=== PATIENT | female | born 1960 | race Caucasian/White ===

== ENCOUNTER → 2020-01-26 14:44 | Outpatient (BNVA) | payer OTHER, SELFPAY | PROVIDERS: PCP Internal Medicine; Referring Provider Internal Medicine; Visit Provider Nurse Practitioner | DX: Z76.89 Persons encountering health services in other specified circumstances (principal) ==

== ENCOUNTER 2020-05-26 08:36 | Outpatient (REF) | payer OTHER, SELFPAY ==
[2020-05-26 09:12] LABS: MANUAL DIFF FLAG NO
[2020-05-26 09:16] LABS: Basophils Percent Auto 0.6 % (0-2); Eosinophils Absolute Auto 0.2 X10*3/uL (0.0-0.4); Eosinophils Percent Auto 4.2 % (0-4); Hemoglobin 12.1 g/dl (12.0-16.0); Imm Gran Abs Auto 0.02 X10*3/uL (0.00-0.03); Imm Gran Pct Auto 0.4 % (0.0-0.4); Lymphocytes Absolute Auto 1.8 X10*3/uL (1.2-4.9); Lymphocytes Percent Auto 33.7 % (20-40); Mean Corpuscular Hemoglobin 28.3 pg (27.0-33.0); Mean Corpuscular Volume 91.1 fL (80-98); Mean Platelet Volume 12.4 fL (9.4-12.3); Monocytes Absolute Auto 0.4 X10*3/uL (0.1-1.2); Monocytes Percent Auto 7.8 % (2-11); Neutrophils Absolute Auto 2.8 X10*3/uL (2.0-8.3); Neutrophils Percent Auto 53.3 % (45-73); Platelet Count 277 X10*3/uL (160-400); Red Blood Count 4.28 X10*6/uL (4.20-5.50); Red Cell Distribution Width 13.6 % (11.0-16.0); White Blood Count 5.3 X10*3/uL (4.8-10.8)
[2020-05-26 09:43] LABS: Alanine Aminotransferase 12 U/L (0-31); Albumin Level 3.9 g/dL (3.5-5.0); Alkaline Phosphatase 97 U/L (39-117); Anion Gap 12 (12-20); Aspartate Amino Transferase 11 U/L (5-31); Bilirubin Total 0.4 mg/dL (0.0-1.0); Blood Urea Nitrogen 15 mg/dL (9-16); Calcium 9.2 mg/dL (8.4-10.2); Carbon Dioxide 29 mmol/L (22-29); Chloride 105 mmol/L (96-108); Cholesterol 195 mg/dL; Estimated Glomerular Filt Rate > 60; Glucose Fasting 98 mg/dL (60-99); HDL Cholesterol 53 mg/dL; LDL Cholesterol Calculated 124 mg/dl; Potassium 4.5 mmol/L (3.3-5.1); Sodium 141 mmol/L (135-145); Triglycerides 91 mg/dL
[2020-05-26 10:05] LABS: TSH reflex Free T4 2.76 uIU/mL (0.32-4.0); Vitamin D 25-OH Total 21.2 ng/mL (>30)
== END 2020-05-26 08:37 | disposition home or self-care (01) ==
LOC: HO.LAB 08:36
PROVIDERS: PCP Internal Medicine; Visit Provider Internal Medicine
DX: Z00.01 Encounter for general adult medical examination with abnormal findings (principal); I10 Essential (primary) hypertension; D12.6 Benign neoplasm of colon, unspecified; L30.9 Dermatitis, unspecified; K21.9 Gastro-esophageal reflux disease without esophagitis; E66.01 Morbid (severe) obesity due to excess calories
CPT/HCPCS: 36415; 80053; 80061; 82306; 84443; 85025

== ENCOUNTER → 2020-07-06 10:12 | Outpatient (BNVA) | payer OTHER, SELFPAY | PROVIDERS: Visit Provider Physician Assistant ==

== ENCOUNTER → 2020-11-03 08:33 | Day surgery (SDC) | payer OTHER, SELFPAY ==
--- NOTE | 2020-11-02 10:21 | P.CONAN_ITS ---
HPI - Anesthesia Eval Consult details Narrative: 60yo F for Colonoscopy Cx'd 11/03/20 d/t poor prep PMFSH Active Problems Active Problems: All Active Problems (Updated 07/06/20 @ 12:39 by Janet padilla PA-C) Arthralgia of knee, left (Acute) Tubular adenoma of colon (Acute) Dermatitis (Acute) Morbid obesity (Acute) Essential hypertension (Acute) Early satiety (Acute) Constipation (Acute) GERD (gastroesophageal reflux disease) (Acute) Past Medical History Medical History Arthralgia of knee, left Dermatitis Essential hypertension Morbid obesity Tubular adenoma of colon Family History Family History Father History of heart attack Mother Hx gestational diabetes Hx of heat stroke History of heart attack Surgical History Surgical History History of colonoscopy History of surgery on wrist Social History Social History Household Members: Family Alcohol intake: current Alcohol intake frequency: holidays/special occasions only Patient Tobacco Use Status: Current everyday Tobacco user Cigarette Packs Per Day: 10 Current occupational status: employed Meds Allergies Allergy/AdvReac Type Severity Reaction Status Date / Time No Known Allergies Allergy Verified 11/03/20 09:09 [No Known Allergies*] Home Medications Medication Instructions Recorded Confirmed Last Taken Type cetirizine 10 mg tablet 10 mg PO DAILY 05/04/20 Unknown History dupilumab 300 mg/2 mL subcutaneous mg SUBCUT 05/04/20 Unknown History syringe Exam Exam Date and Time: November 02, 2020 1021 Pertinent Lab Results Pertinent Lab Results: Laboratory Tests 05/26/20 05/26/20 08:50 08:50 WBC 5.3 Hgb 12.1 Hct 39.0 Plt Count 277 Sodium 141 Potassium 4.5 Chloride 105 Carbon Dioxide 29 BUN 15 Creatinine 0.76 Assessment and Plan Assessment Anesthesia Assessment: Chart Reviewed
[2020-11-03 09:18] VITALS: BMI 43.6
[2020-11-03 09:27] VITALS: BP 186/76; PULSE 66; RESP 20; TEMP 36.3; O2SAT 96
--- NOTE | 2020-11-03 09:35 | PC.NURSE ---
pt to sss. states only took half the prep. assessment complete. changed went to the br. formed stool noted. Dr Hickey informed, she spoke with pt. Procedure cancelled. pt to call office to reschedule.
== END ==
PROVIDERS: PCP Internal Medicine; Visit Provider Internal Medicine Gastroenterology
DX: Z12.11 Encounter for screening for malignant neoplasm of colon (principal); Z53.8 Procedure and treatment not carried out for other reasons

== ENCOUNTER 2020-11-09 15:47 | Outpatient (REF) | payer OTHER, SELFPAY ==
--- NOTE | ~2020-11-09 | MM_ITS ---
EXAMINATION: MM SCREENING DIGITAL BREAST TOMOSYNTHESIS, BILATERAL CLINICAL INFORMATION: Screening. Asymptomatic. The lifetime risk of breast cancer based on the Tyrer-Cuzick Model is 11%. COMPARISON: Mammography: 08/21/2019, 08/15/2018, 08/09/2017 TECHNIQUE: Digital breast tomosynthesis is performed in both the craniocaudal and mediolateral oblique views along with computer-aided detection (CAD). Synthesized 2D images are generated from the tomosynthesis. Additional views are provided: Bilateral CC. FINDINGS: The breasts are almost entirely fatty (ACR BI-RADS breast composition Category a). There are no significant masses, abnormal calcifications, or other abnormalities. The axilla and skin contours are unremarkable. MM/MM tomosynthesis screening BI IMPRESSION: No mammographic evidence of malignancy. ASSESSMENT: BI-RADS 1: Negative RECOMMENDATION: Routine annual mammography screening. This patient's information was entered into a reminder system with a target due date for their next mammogram.
== END 2020-11-09 15:48 | disposition home or self-care (01) ==
LOC: HO.MAMMO 15:47
PROVIDERS: PCP Internal Medicine; Visit Provider Internal Medicine
DX: Z12.31 Encounter for screening mammogram for malignant neoplasm of breast (principal)
CPT/HCPCS: 77063; 77067

== ENCOUNTER 2021-06-02 10:20 | Outpatient (REF) | payer OTHER, SELFPAY ==
[2021-06-02 13:15] LABS: Alanine Aminotransferase 14 U/L (0-31); Anion Gap 15 (12-20); Aspartate Amino Transferase 14 U/L (5-31); Blood Urea Nitrogen 15 mg/dL (9-16); Calcium 9.6 mg/dL (8.4-10.2); Carbon Dioxide 27 mmol/L (22-29); Chloride 104 mmol/L (96-108); Cholesterol 218 mg/dL; Estimated Glomerular Filt Rate > 60; Glucose Fasting 92 mg/dL (60-99); HDL Cholesterol 50 mg/dL; LDL Cholesterol Calculated 149 mg/dl; Potassium 4.7 mmol/L (3.3-5.1); Sodium 141 mmol/L (135-145); Triglycerides 95 mg/dL
[2021-06-02 13:36] LABS: Vitamin D 25-OH Total 30.4 ng/mL (>30)
== END 2021-06-02 10:21 | disposition home or self-care (01) ==
LOC: HO.LAB 10:20
PROVIDERS: PCP Internal Medicine; Visit Provider Internal Medicine
DX: E55.9 Vitamin D deficiency, unspecified (principal); I10 Essential (primary) hypertension
CPT/HCPCS: 36415; 80048; 80061; 82306; 84450; 84460

== ENCOUNTER 2021-11-24 08:39 | Outpatient (REF) | payer OTHER, SELFPAY ==
--- NOTE | ~2021-11-24 | MM_ITS ---
EXAMINATION: MM SCREENING DIGITAL BREAST TOMOSYNTHESIS, BILATERAL CLINICAL INFORMATION: Screening. Asymptomatic. The lifetime risk of breast cancer based on the Tyrer-Cuzick Model is 13%. COMPARISON: Mammography: 11/09/2020, 08/21/2019, 08/15/2018 TECHNIQUE: Digital breast tomosynthesis is performed in both the craniocaudal and mediolateral oblique views along with computer-aided detection (CAD). Synthesized 2D images are generated from the tomosynthesis. Additional exaggerated right CC and additional left CC views are provided. FINDINGS: The breasts are almost entirely fatty (ACR BI-RADS breast composition Category a). There are no significant masses, abnormal calcifications, or other abnormalities. Background stromal markings are normal and there is no developing density or architectural abnormality. No significant changes. MM/MM tomosynthesis screening BI IMPRESSION: No mammographic evidence of malignancy. ASSESSMENT: BI-RADS 1: Negative RECOMMENDATION: Routine annual mammography screening. This patient's information was entered into a reminder system with a target due date for their next mammogram.
== END 2021-11-24 08:40 | disposition home or self-care (01) ==
LOC: HO.MAMMO 08:39
PROVIDERS: Visit Provider Internal Medicine
DX: Z12.31 Encounter for screening mammogram for malignant neoplasm of breast (principal)
CPT/HCPCS: 77063; 77067

== ENCOUNTER 2022-03-25 11:47 | Outpatient (REF) | payer OTHER, SELFPAY ==
[2022-03-25 12:36] LABS: Influenza A PCR NEGATIVE (Negative); Influenza B PCR NEGATIVE (Negative); Resp Syncy Virus RNA Qual PCR NEGATIVE (Negative); SARS COV2 PCR INHOUSE POSITIVE (Negative)
== END 2022-03-25 11:48 | disposition home or self-care (01) ==
LOC: HO.LNP 11:47
PROVIDERS: Visit Provider Internal Medicine
DX: Z20.822 Contact with and (suspected) exposure to COVID-19 (principal); R43.9 Unspecified disturbances of smell and taste
CPT/HCPCS: 0241U

== ENCOUNTER → 2022-07-31 14:47 | Outpatient (BNVA) | payer OTHER, SELFPAY | PROVIDERS: PCP Internal Medicine; Visit Provider Physician Assistant ==

== ENCOUNTER 2022-11-09 09:30 | Outpatient (REF) | payer OTHER, SELFPAY ==
[2022-11-09 10:43] LABS: Alanine Aminotransferase 13 U/L (0-31); Anion Gap 12 (12-20); Aspartate Amino Transferase 14 U/L (5-31); Blood Urea Nitrogen 15 mg/dL (9-16); Calcium 9.8 mg/dL (8.4-10.2); Carbon Dioxide 26 mmol/L (22-29); Chloride 107 mmol/L (96-108); Cholesterol 221 mg/dL (<200); Estimated Glomerular Filt Rate > 60; Glucose Fasting 99 mg/dL (60-99); HDL Cholesterol 56 mg/dL (>40); LDL Cholesterol Calculated 141 mg/dL (<100); Potassium 4.1 mmol/L (3.3-5.1); Sodium 141 mmol/L (135-145); Triglycerides 122 mg/dL (<150)
[2022-11-09 10:58] LABS: Vitamin D 25-OH Total 29.1 ng/mL (>30)
== END 2022-11-09 09:31 | disposition home or self-care (01) ==
LOC: HO.LAB 09:30
PROVIDERS: PCP Internal Medicine; Visit Provider Internal Medicine
DX: Z00.01 Encounter for general adult medical examination with abnormal findings (principal); E66.01 Morbid (severe) obesity due to excess calories; I10 Essential (primary) hypertension; K21.9 Gastro-esophageal reflux disease without esophagitis; E55.9 Vitamin D deficiency, unspecified
CPT/HCPCS: 36415; 80048; 80061; 82306; 84450; 84460

== ENCOUNTER 2022-11-30 09:25 | Outpatient (REF) | payer OTHER, SELFPAY | END 2022-11-30 09:26 | disposition home or self-care (01) | LOC: HO.MAMMO 09:25 | PROVIDERS: PCP Internal Medicine; Visit Provider Internal Medicine | DX: Z12.31 Encounter for screening mammogram for malignant neoplasm of breast (principal) | CPT/HCPCS: 77063; 77067 ==

== ENCOUNTER → 2022-11-30 10:00 | Outpatient (BNV) | payer OTHER, SELFPAY | PROVIDERS: PCP Internal Medicine; Visit Provider Radiology Diagnostic Radiology | DX: Z12.31 Encounter for screening mammogram for malignant neoplasm of breast (principal) | CPT/HCPCS: 77063; 77067 ==

== ENCOUNTER 2022-12-09 11:17 | Outpatient (AMB) | payer OTHER, SELFPAY ==
[2022-12-09 11:29] VITALS: BP 130/78; PULSE 52; O2SAT 99; BMI 46.6
--- NOTE | 2022-12-09 11:29 | A.OFFPC_ITS ---
Vital Signs 12/09/22 11:29 Height 5 ft 8 in Weight 306 lb 4 oz BMI 46.6 BP 130/78 Blood Pressure Location Lt brachial Position Sitting Pulse 52 Pulse Source Pulse Oximeter Pulse Oximetry (%) 99 Oxygen Delivery Method Room Air Intake Visit Reasons: 6 month follow up Gerd Intake Note: pt is here for a 6 month follow up pt had labs 11/09/22 pt wants flu vaccine today Allergies No Known Allergies [No Known Allergies*] Allergy (Verified 08/04/23 09:15) Medication List - Last Reconciled 12/10/22 by Aditi Schaffer MD amlodipine 5 mg PO QPM bisacodyl (Dulcolax (bisacodyl)) 20 mg PO ONCE cetirizine 10 mg PO DAILY PRN cholecalciferol (vitamin D3) 1,250 mcg PO QWEEK 3 months docusate sodium 100 mg PO BID dupilumab mg subcut losartan-hydrochlorothiazide 100-12.5 mg 1 tab PO DAILY metoprolol succinate ER 25 mg PO DAILY omeprazole 40 mg PO DAILY polyethylene glycol 3350 (Miralax) 238 grams PO ONCE 1 day Tobacco use date assessed: 12/09/22 Dental Screening Dental Screen Date: 12/09/22 Did you have a dental visit in the last 12 months?: Yes Did you have a dental problem in the last 6 months where you did not have access to dental care?: No Was dental information given to patient?: Patient has dentist HPI 6 month follow up Gerd HPI Details 63-year-old lady with hypertension, 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 She has been feeling well, compliant with taking medications with no complaints at present time [facility] Medical History (Updated 08/04/23 @ 09:19 by Aditi Schaffer MD) Vitamin D deficiency Hyperlipidemia Annual visit for general adult medical examination with abnormal findings Maxillary sinusitis, acute Disturbance, sleep Excessive daytime sleepiness Smoker unmotivated to quit Arthralgia of knee, left Dermatitis Morbid obesity Essential hypertension Surgical History History of surgery on wrist History of colonoscopy Family History Father History of heart attack Mother Hx gestational diabetes Hx of heat stroke History of heart attack Hypertension Sister Cancer Social History Household Members: Family Housing: Apartment Alcohol intake: current Alcohol intake frequency: holidays/special occasions only Patient Tobacco Use Status: Current everyday Tobacco user Tobacco use type: Cigarette Cigarettes Per Day: 10 e-Cigarette/Vaping Use: Former Use service: No Current occupational status: employed Cognitive needs: No Hearing needs: No Vision needs: Yes Questionnaire PHQ-9 Over the last 2 weeks, how often have you been bothered by any of the following problems? Depression Screening Interpretation: Negative Depression Screening Done: Yes Source: Developed by Drs. Piotr Shaw, Dionne Storm, Edmund Hickey and colleagues, with an educational blu from [email or web address]. Thrive Questionnaire Date Thrive assessed: 06/06/22 GIULIA-7 AMB Questionnaire GIULIA-7 Date GIULIA - 7 assessed: 06/06/22 Source: Developed by Drs. Piotr Shaw, Dionne Storm, Edmund Hickey and colleagues, with an educational blu from [email or web address]. Review of Systems Const Denies headache(s), Denies lethargy, Denies malaise, Denies weakness and Reports weight gain Eyes Reports no additional complaints ENT Denies dysphagia, Denies dizziness, Denies dry mouth, Denies headache(s), Denies nasal congestion, Denies odynophagia, Denies post nasal drip and Denies sore throat Card Denies chest pain, Denies irregular heart rhythm, Denies lightheadedness, Denies palpitations and Denies dyspnea Resp Denies cough, Denies pain on inspiration, Denies dyspnea and Denies wheezing GI Denies abdominal pain, Denies melena, Denies hematochezia, Denies change in bowel habits, Denies dysphagia, Denies heartburn (Controlled on omeprazole), Denies nausea and Denies odynophagia Reports no additional complaints Musc Denies abnormal gait, Denies back pain, Denies myalgias, Reports arthralgias, Denies muscle cramps, Reports stiffness and Denies tingling Skin/Breast Denies lesions and Denies rash Neuro Denies abnormal gait, Denies dizziness, Denies headache(s), Denies focal weakness, Denies tingling and Denies weakness Psych Reports no additional complaints Endo Denies cold intolerance, Denies polyphagia, Denies polydipsia, Denies polyuria and Denies palpitations Zac/Lymph Denies easy bleeding and Denies easy bruising Aller/Immun Denies seasonal rhinorrhea and Denies wheezing Physical exam (Primary Care) Vital Signs: Last Vital Signs Pulse 52 12/09/22 11:29 BP 130/78 12/09/22 11:29 Pulse Ox 99 12/09/22 11:29 Oxygen Delivery Method Room Air 12/09/22 11:29 BMI result Body Mass Index 46.6 BMI Assessment/Plan discussion: High BMI High, discussed plan: lifestyle, weight reduction, dietary and physical activity Tobacco/Smoking Status: Tobacco use Status Tobacco use date assessed 12/09/22 12/09/22 11:35 Patient Tobacco Use Status Current everyday Tobacco 12/09/22 11:31 e-Cigarette/Vaping Use Former Use 12/09/22 11:31 Depression Screening Interpretation: Negative Thrive Assessment: Date of Thrive Assessment Date Thrive assessed 06/06/22 12/09/22 11:31 Const General: comfortable and no acute distress Nutritional Appearance: obese Orientation/consciousness: patient oriented x3 Limitations: no limitations HENMT Head: Yes normocephalic and Yes atraumatic Ears: hearing grossly normal bilaterally General nose exam: Normal external nose present and No nasal discharge present Face and sinus: Yes face symmetric Mouth: tongue normal and moist mucous membranes Eyes General: appearance normal, both eyes and all related structures Neck Neck: Yes full ROM, Yes no lymphadenopathy and Yes supple Thyroid: Thyroid normal Chest Chest palpation & inspection: normal inspection of the chest Breast/axilla palpation: normal palpation of the breasts Resp Effort & Inspection: normal respiratory effort and able to speak in complete sentences Auscultation: clear to auscultation bilaterally Cardio Rate: regular rate Rhythm: regular rhythm Heart sounds: S1 normal heart sound present and S2 normal heart sound present GI Inspection: Yes obesity Palpation (GI): Soft to palpation, nontender, no guarding and no masses General: Yes no CVA tenderness Back/Spine/Pelvis Back: no CVA tenderness and No back tenderness Skin General skin exam: no rashes or lesions noted Neuro General: patient oriented x3, gait normal, tone normal, moves all extremities, Normal light touch and pain sensation, no focal motor deficits and CN's II-XI intact bilaterally Extrem General: Yes full ROM, Yes no joint enlargement, Yes no clubbing, cyanosis or edema, Yes no pedal edema, Yes no calf tenderness and Yes normal gait Psych Appearance: grossly normal and well kempt Mental Status: mental status grossly normal Speech and movement: Normal speech and movement present Affect: normal affect Office Procedures Flu Questionnaire Does the patient have a severe egg allergy?: No Does the patient have severe life threatening allergies?: No Does the patient have a fever or illness today?: No Has the patient ever had Guillain-[place] Syndrome?: No Has the patient ever had any past reaction to a flu shot?: No Immunizations flu vacc [id number] 6mos up(PF) 60 mcg(15 mcgx4)/0.5 mL IM syringe Performing Provider: Aditi Schaffer MD Performing Location: [facility] Administered by: Anneliese Jarvis CMA on 12/09/22 12:35 Dose Route Admin Location Dispensed Lot Number Expiration Date NDC Mathematician 0.5 mL IM Right Deltoid 0.5 mL [id number] 08/24/23 24550-555-75 [employer] VIS Given Date VIS Provided VIS Publication Date 12/09/22 Single Vaccine 20 Eligibility Eligibility Date Funding Source Not [facility] Eligible 12/09/22 Private Assessment and Plan Assessment & Plan (1) Essential hypertension: Code(s): I10 - Essential (primary) hypertension Plan: Blood pressure at goal of less than 130/80. Continue amlodipine 5 mg daily at night, and losartan-HCTZ 100-12.5 mg 1 tablet in the morning, as well as metoprolol succinate ER 25 mg daily. Reinforced importance of following a low sodium diet, getting regular exercise, and lowering stress levels. Basic metabolic panel (2) Hyperlipidemia: Code(s): E78.5 - Hyperlipidemia, unspecified Qualifiers: Hyperlipidemia type: unspecified Qualified Code(s): E78.5 - Hyperlipidemia, unspecified Plan: Fasting lipid panel ordered today (3) Smoker unmotivated to quit: Code(s): F17.200 - Nicotine dependence, unspecified, uncomplicated Plan: Patient strongly advised to stop smoking, as smoking damages blood vessels, degenerative of joints and spine, damage to lungs and heart., predisposes to developing certain cancers like lung, breast, bladder, colon. Recommended to try decreasing cigarette use by 1-2 cigarettes a day. Advised to monitor what triggers are for smoking so that this can be discussed on the next office visit. We can discuss different options to quit smoking when ready. (4) Vitamin D deficiency: Code(s): E55.9 - Vitamin D deficiency, unspecified Plan: Prescription sent for vitamin-D 350 1000 units per capsule to take once a week for the next 3 months, once finished taking prescription, to continue taking [id number] vitamin-D 3 at 2000 units daily (5) Needs flu shot: Code(s): Z23 - Encounter for immunization Plan: Flu vaccine given today Orders: Orders Influenza [id number] Immunization 12/09/22 Z23 - Encounter for immunization Lipid Panel 05/26/23 Z00.01 - Encounter for general adult medical examination with abnormal findings, F17.200 - Nicotine dependence, unspecified, uncomplicated, E66.01 - Morbid (severe) obesity due to excess calories, I10 - Essential (primary) hypertension, E78.5 - Hyperlipidemia, unspecified Basic Metabolic Panel Fasting 05/26/23 Z00.01 - Encounter for general adult medical examination with abnormal findings, F17.200 - Nicotine dependence, unspecified, uncomplicated, E66.01 - Morbid (severe) obesity due to excess calories, I10 - Essential (primary) hypertension, E78.5 - Hyperlipidemia, unspecified Alanine Aminotransferase 05/26/23 Z00.01 - Encounter for general adult medical examination with abnormal findings, F17.200 - Nicotine dependence, unspecified, uncomplicated, E66.01 - Morbid (severe) obesity due to excess calories, I10 - Essential (primary) hypertension, E78.5 - Hyperlipidemia, unspecified Aspartate Amino Transferase 05/26/23 Z00.01 - Encounter for general adult medical examination with abnormal findings, F17.200 - Nicotine dependence, unspecified, uncomplicated, E66.01 - Morbid (severe) obesity due to excess calories, I10 - Essential (primary) hypertension, E78.5 - Hyperlipidemia, unspecified Vitamin D 25-OH Total 05/26/23 Z00.01 - Encounter for general adult medical examination with abnormal findings, F17.200 - Nicotine dependence, unspecified, uncomplicated, E66.01 - Morbid (severe) obesity due to excess calories, I10 - Essential (primary) hypertension, E78.5 - Hyperlipidemia, unspecified Medications: New cholecalciferol (vitamin D3) 1,250 mcg PO QWEEK 13 caps 0RF 3 months Coding Level of Care Code Est Pt Level 4 (95098) Complex EM visit Add On G2211 Diagnoses Essential hypertension I10 Hyperlipidemia, unspecified hyperlipidemia type E78.5 Hyperlipidemia type: unspecified Smoker unmotivated to quit F17.200 Vitamin D deficiency E55.9 Needs flu shot Z23
== END 2022-12-09 15:48 | disposition home or self-care (01) ==
PROVIDERS: PCP Internal Medicine; Visit Provider Internal Medicine
DX: I10 Essential (primary) hypertension (principal); E78.5 Hyperlipidemia, unspecified; F17.200 Nicotine dependence, unspecified, uncomplicated; E55.9 Vitamin D deficiency, unspecified; Z23 Encounter for immunization
CPT/HCPCS: 90471; 90686; 99499

== ENCOUNTER 2023-08-04 08:47 | Outpatient (AMB) | payer OTHER, SELFPAY ==
[2023-08-04 09:02] VITALS: BP 156/70; PULSE 57; O2SAT 96; BMI 46.1
--- NOTE | 2023-08-04 09:02 | MHC.PC.OV ---
Vital Signs 08/04/23 09:02 08/04/23 09:50 Height 5 ft 8 in Weight 303 lb BMI 46.1 BP 156/70 H 140/75 H Blood Pressure Location Rt brachial Rt brachial Position Sitting Sitting Pulse 57 Pulse Source Pulse Oximeter Pulse Oximetry (%) 96 Oxygen Delivery Method Room Air Intake Visit Reasons: PE and feels tired when she wakes up Intake Note: Pt is here today for f/u HTN and vertigo Allergies No Known Allergies [No Known Allergies*] Allergy (Verified 10/17/23 13:49) Medication List - Last Reconciled 08/04/23 by Aditi Schaffer MD amlodipine 5 mg PO QPM cetirizine 10 mg PO DAILY PRN clobetasol 0.05% topical docusate sodium 100 mg PO BID dupilumab mg subcut losartan-hydrochlorothiazide 100-12.5 mg 1 tab PO DAILY metoprolol succinate ER 25 mg PO DAILY omeprazole 40 mg PO DAILY Tobacco use date assessed: 08/04/23 Dental Screening Dental Screen Date: 08/04/23 Did you have a dental visit in the last 12 months?: Yes Did you have a dental problem in the last 6 months where you did not have access to dental care?: No Was dental information given to patient?: Patient has dentist HPI PE and feels tired when she wakes up HPI Details 63-year-old lady here today for physical exam. Has hypertension, currently on amlodipine losartan HCTZ and metoprolol, previously controlled blood pressure but today's blood pressure is mildly elevated. Denies headaches, no lightheadedness but feels tired when she wakes up in the morning. No headache no shortness a breath no chest pain, no lightheadedness. She has been referred to sleep clinic in 2021, was seen but was unable to do the sleep study done due to scheduling issues. Up-to-date with her screening mammogram due again in 12/14/2023, last Pap smear was done in 2015, overdue. Had a colonoscopy in 2015 with removal of a tubular adenoma and hyperplastic polyp. It was repeated in 2020 but was unable to be completed due to poor prep. Has an appointment with Caitlin Roche later this month, and will discuss having a repeat colonoscopy done. Has chronic GERD, currently stable controlled on omeprazole PFSH Medical History (Updated 10/17/23 @ 14:23 by Eulalia Anderson PA-C) Arthritis of both knees Vitamin D deficiency Hyperlipidemia Annual visit for general adult medical examination with abnormal findings Maxillary sinusitis, acute Disturbance, sleep Excessive daytime sleepiness Smoker unmotivated to quit Arthralgia of knee, left Dermatitis Morbid obesity Essential hypertension Surgical History History of surgery on wrist History of colonoscopy Family History Father History of heart attack Mother Hx gestational diabetes Hx of heat stroke History of heart attack Hypertension Sister Cancer Social History Household Members: Family Housing: Apartment Alcohol intake: current Alcohol intake frequency: holidays/special occasions only Patient Tobacco Use Status: Current everyday Tobacco user Tobacco use type: Cigarette Cigarettes Per Day: 10 e-Cigarette/Vaping Use: Former Use service: No Current occupational status: employed Cognitive needs: No Hearing needs: No Vision needs: Yes Questionnaire PHQ-9 Over the last 2 weeks, how often have you been bothered by any of the following problems? 1. Little interest or pleasure in doing things: not at all 2. Feeling down, depressed, or hopeless: not at all 3. Trouble falling or staying asleep, or sleeping too much: not at all 4. Feeling tired or having little energy: not at all 5. Poor appetite or overeating: not at all 6. Feeling bad about yourself - or that you are a failure or have let yourself or your family down: not at all 7. Trouble concentrating on things, such as reading the newspaper or watching television: not at all 8. Moving or speaking so slowly that other people could have noticed. Or the opposite - being so fidgety or restless that you have been moving around a lot more than usual: not at all 9. Thoughts that you would be better off or of hurting yourself in some way: not at all Total score: 0 Depression Screening Interpretation: Negative Depression Screening Done: Yes 02933 - PHQ-9 Billing: Yes Source: Developed by Drs. Piotr Shaw, DionneEdmund Leung and colleagues, with an educational blu from [employer]. Thrive Questionnaire Date Thrive assessed: 08/04/23 I am a: Patient What is your living situation today?: I have a steady place to live Within the past 12 months, did the food you bought not last and you didn't have the money to get more?: Never true Within the past 12 months, did you worry whether your food would run out before you got money to buy more?: Never true Do you have trouble paying for medicines?: No Do you have trouble getting transportation to medical appointments?: No Do you have trouble paying your heating and electricity bill?: No Do you have trouble taking care of your child, family member or friend?: No Do you have trouble with day-to-day activities such as bathing, preparing meals, shopping, managing finances, etc.?: No Are you currently unemployed and looking for a job?: No Are you interested in more education?: No THRIVE Score: 0 AUDIT C Alcohol Use Questionnaire (AUDIT-C) 1. How often do you have a drink containing alcohol?: Monthly or less 2. How many drinks containing alcohol do you have on a typical day when you are drinking?: 1 or 2 3. How often do you have six or more drinks on one occasion?: Never Total Score: 1 GIULIA-7 AMB Questionnaire GIULIA-7 Date GIULIA - 7 assessed: 08/04/23 Feeling nervous, anxious, or on edge: 0 = Not at all Not being able to stop or control worryin = Not at all Worrying too much about different things: 0 = Not at all Trouble relaxin = Not at all Being so restless that it is hard to sit still: 0 = Not at all Becoming easily annoyed or irritable: 0 = Not at all Feeling afraid as if something awful might happen: 0 = Not at all Total GIULIA-7 score (0-4 normal; 5-9 mild; 10-14 moderate; 15-21 severe): 0 Source: Developed by Drs. Piotr Shaw, Edmund Vieira and colleagues, with an educational blu from [employer]. GIULIA-7 Assessment Billing GIULIA-7 Assessment Tool: GIULIA-7 Assessment 99229 Review of Systems Const Reports as per HPI, Denies headache(s) and Denies weakness Eyes Details: Sees Dr. Messer, wears reading glasses Reports no additional complaints ENT Denies dysphagia, Denies dry mouth, Denies headache(s), Denies nasal congestion and Denies post nasal drip Card Denies chest pain, Denies irregular heart rhythm, Denies lightheadedness, Denies palpitations and Denies dyspnea Resp Denies cough, Denies pain on inspiration, Denies dyspnea and Denies wheezing GI Denies abdominal pain, Denies melena, Denies hematochezia, Denies change in bowel habits, Denies dysphagia, Denies heartburn (Controlled on omeprazole) and Denies nausea Reports no additional complaints Musc Denies abnormal gait, Denies back pain, Denies myalgias, Reports arthralgias, Denies muscle cramps, Reports stiffness and Denies tingling Skin/Breast Denies lesions and Denies rash Neuro Denies abnormal gait, Denies headache(s), Denies focal weakness, Denies tingling and Denies weakness Psych Reports no additional complaints Endo Denies cold intolerance, Denies polyphagia, Denies polydipsia, Denies polyuria and Denies palpitations Zac/Lymph Denies easy bleeding and Denies easy bruising Aller/Immun Denies seasonal rhinorrhea and Denies wheezing Physical exam (Primary Care) Vital Signs: Last Vital Signs Pulse 57 08/04/23 09:02 BP 140/75 H 08/04/23 09:50 Pulse Ox 96 08/04/23 09:02 Oxygen Delivery Method Room Air 08/04/23 09:02 BMI result Body Mass Index 46.1 BMI Assessment/Plan discussion: High BMI High, discussed plan: lifestyle, weight reduction, dietary and physical activity Tobacco/Smoking Status: Tobacco use Status Tobacco use date assessed 08/04/23 08/04/23 09:05 Patient Tobacco Use Status Current everyday Tobacco 08/04/23 09:05 Tobacco use type Cigarette 08/04/23 09:05 e-Cigarette/Vaping Use Former Use 08/04/23 09:05 PHQ-9: PHQ-9 Score PHQ-9: Total score 0 08/04/23 09:53 Depression Screening Interpretation: Negative Thrive Assessment: Date of Thrive Assessment Date Thrive assessed 08/04/23 08/04/23 09:08 Const General: comfortable and no acute distress Nutritional Appearance: obese Orientation/consciousness: patient oriented x3 HENMT Head: Yes normocephalic and Yes atraumatic Ears: hearing grossly normal bilaterally General nose exam: Normal external nose present and No nasal discharge present Face and sinus: Yes face symmetric Mouth: tongue normal and moist mucous membranes Eyes General: appearance normal, both eyes and all related structures Neck Neck: Yes full ROM, Yes no lymphadenopathy and Yes supple Thyroid: Thyroid normal Chest Chest palpation & inspection: normal inspection of the chest Breast/axilla palpation: normal palpation of the breasts Resp Effort & Inspection: normal respiratory effort and able to speak in complete sentences Auscultation: clear to auscultation bilaterally Cardio Rate: regular rate Rhythm: regular rhythm Heart sounds: S1 normal heart sound present and S2 normal heart sound present GI Inspection: Yes obesity Palpation (GI): Soft to palpation, nontender, no guarding and no masses General: Yes no CVA tenderness Back/Spine/Pelvis Back: no CVA tenderness and No back tenderness Skin General skin exam: no rashes or lesions noted Neuro General: patient oriented x3, gait normal, tone normal, moves all extremities, Normal light touch and pain sensation, no focal motor deficits and CN's II-XI intact bilaterally Extrem General: Yes full ROM, Yes no joint enlargement, Yes no clubbing, cyanosis or edema, Yes no pedal edema, Yes no calf tenderness and Yes normal gait Psych Appearance: grossly normal and well kempt Mental Status: mental status grossly normal Speech and movement: Normal speech and movement present Affect: normal affect Coding Level of Care Code Est Pt Prev Care 40-64y(66143) Diagnoses Annual visit for general adult medical examination with abnormal findings Z00.01 Excessive daytime sleepiness G47.19 Arthritis of both knees M17.0 Fatigue R53.83 Smoker unmotivated to quit F17.200 Essential hypertension I10 GERD (gastroesophageal reflux disease) K21.9 History of adenomatous polyp of colon Z86.010 Morbid obesity E66.01 Hyperlipidemia, unspecified hyperlipidemia type E78.5 Hyperlipidemia type: unspecified Additional Codes GIULIA-7 Assessment Billing - GIULIA-7 Assessment Tool: GIULIA-7 Assessment 21924 ([id number])
[2023-08-04 09:50] VITALS: BP 140/75
== END 2023-08-04 10:01 | disposition home or self-care (01) ==
PROVIDERS: PCP Internal Medicine; Visit Provider Internal Medicine
DX: Z00.01 Encounter for general adult medical examination with abnormal findings (principal); G47.19 Other hypersomnia; M17.0 Bilateral primary osteoarthritis of knee; R53.83 Other fatigue; F17.200 Nicotine dependence, unspecified, uncomplicated; I10 Essential (primary) hypertension; K21.9 Gastro-esophageal reflux disease without esophagitis; Z86.010 Personal history of colon polyps; E66.01 Morbid (severe) obesity due to excess calories; E78.5 Hyperlipidemia, unspecified
CPT/HCPCS: 99499

== ENCOUNTER 2023-10-17 13:48 | Outpatient (AMB) | payer OTHER, SELFPAY ==
--- NOTE | 2023-10-17 13:49 | MHC.OFFWIV ---
Intake Vital Signs 10/17/23 13:50 Height 5 ft 8 in Weight 309 lb BMI 47.0 BP 148/84 H Blood Pressure Location Rt brachial Position Sitting Pulse 73 Pulse Source Pulse Oximeter Temp 98.1 F Temp Source Oral Pulse Oximetry (%) 98 Oxygen Delivery Method Room Air Intake Visit Reasons: EP Cyst Intake Note: pt c/o cyst on LT buttock. started this week Patient Tobacco Use Status: Current everyday Tobacco user Allergies No Known Allergies [No Known Allergies*] Allergy (Verified 10/17/23 13:49) Do you need a note to return to daycare/school/sports/work: No HPI HPI Comments History of Present Illness Details Patient is a 63-year-old female complaining of a boil on her buttocks and in her right groin. She states the 1 on her buttocks has been leaking some fluid but it is extremely painful. She has been keeping it covered with a Band-Aid. She states the pain is worse when she is sitting. The 1 in her right groin is not leaking any fluid but it feels similar to the other 1, they are both fairly hard. [facility] Medical History (Updated 10/17/23 @ 14:23 by Eulalia Anderson PA-C) Arthritis of both knees Vitamin D deficiency Hyperlipidemia Annual visit for general adult medical examination with abnormal findings Maxillary sinusitis, acute Disturbance, sleep Excessive daytime sleepiness Smoker unmotivated to quit Arthralgia of knee, left Dermatitis Morbid obesity Essential hypertension Surgical History History of surgery on wrist History of colonoscopy Family History Father History of heart attack Mother Hx gestational diabetes Hx of heat stroke History of heart attack Hypertension Sister Cancer Social History Household Members: Family Housing: Apartment Alcohol intake: current Alcohol intake frequency: holidays/special occasions only Patient Tobacco Use Status: Current everyday Tobacco user Tobacco use type: Cigarette Cigarettes Per Day: 10 e-Cigarette/Vaping Use: Former Use service: No Current occupational status: employed Cognitive needs: No Hearing needs: No Vision needs: Yes Review of Systems Const All systems reviewed & are unremarkable except as noted in HPI and below Physical Exam Vital Signs: Last Vital Signs Temp 98.1 F 10/17/23 13:50 Pulse 73 10/17/23 13:50 BP 148/84 H 10/17/23 13:50 Pulse Ox 98 10/17/23 13:50 Oxygen Delivery Method Room Air 10/17/23 13:50 BMI result Body Mass Index 47.0 Const General: cooperative, healthy appearing, comfortable, no acute distress and well developed Orientation/consciousness: patient oriented x3 Limitations: no limitations HEENT Head: Yes normal to inspection Ears: hearing grossly normal bilaterally General nose exam: Normal external nose present Face and sinus: Yes normal facial exam Eyes General: appearance normal, both eyes and all related structures Neck Neck: Yes normal visual inspection and Yes full ROM Resp Effort & Inspection: normal respiratory effort and able to speak in complete sentences Skin Other: Left buttocks, 5 o'clock position patient has a 3 cm round erythematous mostly indurated abscess. The central purulence, able to express half a cc of purulent fluid. Right groin, 1 cm indurated erythematous abscess, no drainage noted, no central drainage Neuro General: patient oriented x3 Extrem General: Yes normal to inspection Assessment & Plan Assessment & Plan (1) Abscess of multiple sites: Code(s): L02.91 - Cutaneous abscess, unspecified Plan: Unable to do I & D because both abscesses are too indurated. We will prescribe doxycycline, did caution patient to stay out of the sun while she is taking this medication and also to take it with food to lessen GI upset. Plan See above Medications: New doxycycline hyclate 100 mg PO BID 14 tabs 0RF Coding Level of Care Code Est Pt Level 3 (69948) Diagnoses Abscess of multiple sites L02.91
[2023-10-17 13:50] VITALS: BP 148/84; PULSE 73; TEMP 36.7; O2SAT 98; BMI 47.0
== END 2023-10-17 14:16 | disposition home or self-care (01) ==
PROVIDERS: PCP Internal Medicine; Visit Provider Physician Assistant
DX: L02.91 Cutaneous abscess, unspecified (principal)
CPT/HCPCS: 99213

== ENCOUNTER 2023-12-06 09:37 | Outpatient (REF) | payer OTHER, SELFPAY ==
--- NOTE | ~2023-12-06 | MM_ITS ---
EXAMINATION: MM SCREENING DIGITAL BREAST TOMOSYNTHESIS, BILATERAL CLINICAL INFORMATION: Screening. Asymptomatic. COMPARISON: Mammography: Comparison is made with available priors TECHNIQUE: Digital breast mammography with tomosynthesis is performed in both the craniocaudal and mediolateral oblique views along with computer-aided detection (CAD). FINDINGS: There are scattered areas of fibroglandular density (ACR BI-RADS breast composition Category b). There are no significant masses, abnormal calcifications, or other abnormalities. MM/MM tomosynthesis screening BI IMPRESSION: No mammographic evidence of malignancy. ASSESSMENT: BI-RADS BI-RADS 1 - Negative RECOMMENDATION: Routine annual mammography screening. 1 year F/U This examination should not preclude the clinical evaluation of a suspicious palpable abnormality. This patient's information was entered into a reminder system with a target due date for their next mammogram. Electronically signed by: Maye Corrales DO 12/19/2023 10:08 AM BALWINDER
== END 2023-12-06 09:38 | disposition home or self-care (01) ==
LOC: HO.MAMMO 09:37
PROVIDERS: PCP Internal Medicine; Visit Provider Internal Medicine
DX: Z12.31 Encounter for screening mammogram for malignant neoplasm of breast (principal)
CPT/HCPCS: 77063; 77067

== ENCOUNTER → 2023-12-06 10:00 | Outpatient (BNV) | payer OTHER, SELFPAY | PROVIDERS: PCP Internal Medicine; Visit Provider Internal Medicine | DX: Z12.31 Encounter for screening mammogram for malignant neoplasm of breast (principal) | CPT/HCPCS: 77063; 77067 ==

== ENCOUNTER 2024-01-10 09:09 | Outpatient (REF) | payer OTHER, SELFPAY ==
[2024-01-10 09:39] LABS: MANUAL DIFF FLAG NO
[2024-01-10 10:10] LABS: Basophils Absolute Auto 0.1 X10*3/uL (0.0-0.2); Basophils Percent Auto 0.9 % (0-2); Eosinophils Absolute Auto 0.1 X10*3/uL (0.0-0.4); Eosinophils Percent Auto 2.6 % (0-4); Hematocrit 37.5 % (37.0-47.0); Hemoglobin 12.1 g/dl (12.0-16.0); Imm Gran Abs Auto 0.01 X10*3/uL (0.00-0.03); Imm Gran Pct Auto 0.2 % (0.0-0.4); Lymphocytes Absolute Auto 1.5 X10*3/uL (1.2-4.9); Mean Corpuscular HGB Conc 32.3 g/dl (31.0-35.0); Mean Corpuscular Hemoglobin 28.5 pg (27.0-33.0); Mean Corpuscular Volume 88.2 fL (80.0-98.0); Mean Platelet Volume 12.5 fL (9.4-12.3); Monocytes Absolute Auto 0.4 X10*3/uL (0.1-1.2); Monocytes Percent Auto 6.8 % (2-11); Neutrophils Absolute Auto 3.3 x10*3/uL (2.0-8.3); Neutrophils Percent Auto 61.5 % (45-73); Platelet Count 303 X10*3/uL (160-400); Red Blood Count 4.25 X10*6/uL (4.20-5.50); Red Cell Distribution Width 13.9 % (11.0-16.0); White Blood Count 5.4 X10*3/uL (4.8-10.8)
[2024-01-10 11:18] LABS: Alanine Aminotransferase 11 U/L (0-31); Anion Gap 11 (12-20); Aspartate Amino Transferase 20 U/L (5-31); Blood Urea Nitrogen 16 mg/dL (9-16); Calcium 9.6 mg/dL (8.4-10.2); Carbon Dioxide 27 mmol/L (22-29); Chloride 106 mmol/L (96-108); Cholesterol 193 mg/dL (<200); Estimated Glomerular Filt Rate > 60; Glucose Fasting 106 mg/dL (60-99); HDL Cholesterol 50 mg/dL (>40); LDL Cholesterol Calculated 123 mg/dL (<100); Potassium 3.8 mmol/L (3.3-5.1); Sodium 140 mmol/L (135-145); Triglycerides 103 mg/dL (<150)
[2024-01-10 11:43] LABS: TSH reflex Free T4 2.38 uIU/mL (0.32-4.0)
== END 2024-01-10 09:10 | disposition home or self-care (01) ==
LOC: HO.LAB 09:09
PROVIDERS: PCP Internal Medicine; Visit Provider Internal Medicine
DX: Z00.01 Encounter for general adult medical examination with abnormal findings (principal); F17.200 Nicotine dependence, unspecified, uncomplicated; E66.01 Morbid (severe) obesity due to excess calories; I10 Essential (primary) hypertension; E78.5 Hyperlipidemia, unspecified; R53.83 Other fatigue
CPT/HCPCS: 36415; 80048; 80061; 82306; 84443; 84450; 84460; 85025

== ENCOUNTER → 2024-03-18 15:43 | Outpatient (BNVA) | payer OTHER, SELFPAY | PROVIDERS: PCP Internal Medicine; Visit Provider Internal Medicine | DX: E55.9 Vitamin D deficiency, unspecified (principal); I10 Essential (primary) hypertension; R73.01 Impaired fasting glucose | CPT/HCPCS: 96127 ==

== ENCOUNTER 2024-05-24 09:43 | Outpatient (AMB) | payer OTHER, SELFPAY ==
--- NOTE | 2024-05-24 10:48 | AM.OFFWIN_ITS ---
Intake Vital Signs 05/24/24 10:49 Weight 304 lb BP 120/86 Blood Pressure Location Lt brachial Position Sitting Pulse 62 Pulse Source Pulse Oximeter Pulse Oximetry (%) 99 Oxygen Delivery Method Room Air Intake Visit Reasons: EP-legs cramps Intake Note: Patient here for leg cramping at night that happens all night long and has been going on for about 1 week. Patient Tobacco Use Status: Current everyday Tobacco user Allergies No Known Allergies [No Known Allergies*] Allergy (Verified 05/24/24 10:50) Do you need a note to return to daycare/school/sports/work: No HPI HPI Comments History of Present Illness Details 64 y/o female patient who presents to [facility] walk in clinic with c/o Lower extremities muscle cramping at night time while sleeping for 1 week now. [facility] Medical History (Updated 05/24/24 @ 11:12 by Shanda Garcia NP) Nocturnal muscle cramps Impaired fasting glucose Eczema Arthritis of both knees Vitamin D deficiency Hyperlipidemia Annual visit for general adult medical examination with abnormal findings Maxillary sinusitis, acute Disturbance, sleep Excessive daytime sleepiness Smoker unmotivated to quit Arthralgia of knee, left Dermatitis Morbid obesity Essential hypertension Surgical History History of surgery on wrist History of colonoscopy Family History Father History of heart attack Mother Hx gestational diabetes Hx of heat stroke History of heart attack Hypertension Sister Cancer Social History Household Members: Family Housing: Apartment Alcohol intake: current Alcohol intake frequency: holidays/special occasions only Patient Tobacco Use Status: Current everyday Tobacco user Tobacco use type: Cigarette Cigarettes Per Day: 10 e-Cigarette/Vaping Use: Former Use service: No Current occupational status: employed Cognitive needs: No Hearing needs: No Vision needs: Yes Review of Systems Const All systems reviewed & are unremarkable except as noted in HPI and below Physical Exam Vital Signs: Last Vital Signs Pulse 62 05/24/24 10:49 BP 120/86 05/24/24 10:49 Pulse Ox 99 05/24/24 10:49 Oxygen Delivery Method Room Air 05/24/24 10:49 Const General: no acute distress Nutritional Appearance: obese morbidly obese Orientation/consciousness: patient oriented x3 Neuro General: patient oriented x3, gait normal and moves all extremities Extrem Other: Normal ROM of both Lower extremities; large obese legs. Right lower extremity: normal to inspection, full ROM and lower leg Details: normal to inspection; no erythema and no tenderness Left lower extremity: normal to inspection and full ROM Psych Speech and movement: Normal speech and movement present Assessment & Plan Assessment & Plan (1) Nocturnal muscle cramps: Code(s): R25.2 - Cramp and spasm Plan: Advised Patient to follow up with PCP for further evaluation. Messaged PCP for an appointment. Coding Level of Care Code Est Pt Level 4 (78110) Diagnoses Nocturnal muscle cramps R25.2 Time Spent (min) 20
[2024-05-24 10:49] VITALS: BP 120/86; PULSE 62; O2SAT 99
== END 2024-05-24 11:19 | disposition home or self-care (01) ==
PROVIDERS: PCP Internal Medicine; Visit Provider Nurse Practitioner Family
DX: R25.2 Cramp and spasm (principal)

== ENCOUNTER → 2024-05-24 09:43 | Outpatient (BNVA) | payer OTHER, SELFPAY | PROVIDERS: PCP Internal Medicine; Visit Provider Nurse Practitioner Family ==

== ENCOUNTER 2024-08-30 10:42 | Outpatient (AMB) | payer OTHER, SELFPAY ==
[2024-08-30 11:55] VITALS: BP 110/70; PULSE 73; RESP 17; TEMP 36.5; O2SAT 99; BMI 47.6
--- NOTE | 2024-08-30 11:55 | MHC.PC.OV ---
Vital Signs 08/30/24 11:55 Height 5 ft 8 in Weight 313 lb BMI 47.6 BP 110/70 Blood Pressure Location Lt brachial Position Sitting Respiration 17 Pulse 73 Pulse Source Pulse Oximeter Temp 97.7 F Temp Source Oral Pulse Oximetry (%) 99 Oxygen Delivery Method Room Air Intake Visit Reasons: PE/HTN Intake Note: Pt is here today for her PE/HTN: Last mammogram 12/06/23, colonoscopy 03/20/25 Allergies No Known Allergies (No Known Allergies*) Allergy (Verified 08/30/24 12:26) Medication List - Last Reconciled 09/05/24 by Aditi Schaffer MD amlodipine 5 mg PO QPM cetirizine 10 mg PO DAILY PRN clobetasol 0.05% topical PRN diclofenac sodium 1% 4 grams topical QID PRN docusate sodium 100 mg PO BID dupilumab mg subcut Q2W losartan-hydrochlorothiazide 100-12.5 mg 1 tab PO DAILY metoprolol succinate ER 25 mg PO DAILY omeprazole 40 mg PO DAILY Tobacco use date assessed: 08/30/24 Dental Screening Dental Screen Date: 08/30/24 Did you have a dental visit in the last 12 months?: Yes Did you have a dental problem in the last 6 months where you did not have access to dental care?: No Was dental information given to patient?: Patient has dentist HPI HPI Comments History of Present Illness Details 65-year-old lady here today for her physical exam. Last mammogram was done 12/06/2023 with benign findings, and had a colonoscopy in [address] Barber which showed presence of tubular adenoma, overdue for repeat colonoscopy. She has impaired fasting glucose and dyslipidemia, currently trying to control through diet and exercise. Has history of vitamin-D deficiency , but not taking any vitamin-D supplements . Continues to smoke cigarettes at least 10 cigarettes a day, with no desire to quit at present time. Has been having difficulty with weight loss, has tried exercising but complains of pain stiffness in knees and ankles. Has a painful lump in her right lower abdomen which has been present now for the last week, no drainage noted PFSH Medical History Nocturnal muscle cramps Impaired fasting glucose Eczema Arthritis of both knees Vitamin D deficiency Hyperlipidemia Annual visit for general adult medical examination with abnormal findings Maxillary sinusitis, acute Disturbance, sleep Excessive daytime sleepiness Smoker unmotivated to quit Arthralgia of knee, left Dermatitis Morbid obesity Essential hypertension Surgical History History of surgery on wrist History of colonoscopy Family History Father History of heart attack Mother Hx gestational diabetes Hx of heat stroke History of heart attack Hypertension Sister Cancer Social History Household Members: Family Housing: Apartment Alcohol intake: current Alcohol intake frequency: holidays/special occasions only Patient Tobacco Use Status: Current everyday Tobacco user Tobacco use type: Cigarette Cigarettes Per Day: 10 e-Cigarette/Vaping Use: Former Use service: No Current occupational status: employed Cognitive needs: No Hearing needs: No Vision needs: Yes Questionnaire PHQ-9 Over the last 2 weeks, how often have you been bothered by any of the following problems? Depression Screening Interpretation: Negative Depression Screening Done: Yes Source: Developed by Drs. Piotr Shaw, Dionne Storm, Edmund Hickey and colleagues, with an educational blu from [employer]. Thrive Questionnaire Date Thrive assessed: 03/18/24 I am a: Patient What is your living situation today?: I have a steady place to live Within the past 12 months, did the food you bought not last and you didn't have the money to get more?: I choose not to answer this question Within the past 12 months, did you worry whether your food would run out before you got money to buy more?: I choose not to answer this question Do you have trouble paying for medicines?: No Do you have trouble getting transportation to medical appointments?: No Do you have trouble paying your heating and electricity bill?: I choose not to answer this question Do you have trouble taking care of your child, family member or friend?: No Do you have trouble with day-to-day activities such as bathing, preparing meals, shopping, managing finances, etc.?: I choose not to answer this question Are you currently unemployed and looking for a job?: I choose not to answer this question Are you interested in more education?: I choose not to answer this question Please select the resources that you would like help with: Transportation Currently or been in a relationship where the following occur: I choose not to answer THRIVE Score: 0 GIULIA-7 AMB Questionnaire GIULIA-7 Date GIULIA - 7 assessed: 03/18/24 Source: Developed by Drs. Piotr Shaw, Dionne Storm, Edmund Hickey and colleagues, with an educational blu from [employer]. Review of Systems Const Denies body aches, Denies headache(s), Denies poor appetite, Denies weakness and Reports weight gain Eyes Details: Sees Dr. Messer, wears reading glasses Reports no additional complaints ENT Denies dysphagia and Denies headache(s) Card Denies chest pain, Denies irregular heart rhythm, Denies lightheadedness, Denies palpitations and Denies dyspnea Resp Denies cough, Denies dyspnea and Denies wheezing GI Denies abdominal pain, Denies melena, Denies hematochezia, Denies change in bowel habits, Denies dysphagia, Denies heartburn (Controlled on omeprazole) and Denies nausea Reports no additional complaints Musc Denies abnormal gait, Denies back pain, Denies myalgias, Reports arthralgias, Denies muscle cramps, Reports stiffness and Denies tingling Skin/Breast Denies lesions and Denies rash Neuro Denies abnormal gait, Denies headache(s), Denies focal weakness, Denies tingling and Denies weakness Psych Reports no additional complaints Endo Denies cold intolerance, Denies polyphagia, Denies polydipsia, Denies polyuria and Denies palpitations Zac/Lymph Denies easy bleeding and Denies easy bruising Aller/Immun Denies seasonal rhinorrhea and Denies wheezing Physical exam (Primary Care) Vital Signs: Last Vital Signs Temp 97.7 F 08/30/24 11:55 Pulse 73 08/30/24 11:55 Resp 17 08/30/24 11:55 BP 110/70 08/30/24 11:55 Pulse Ox 99 08/30/24 11:55 Oxygen Delivery Method Room Air 08/30/24 11:55 BMI result Body Mass Index 47.6 BMI Assessment/Plan discussion: High BMI High, discussed plan: lifestyle, weight reduction, dietary and physical activity Tobacco/Smoking Status: Tobacco use Status Tobacco use date assessed 08/30/24 08/30/24 11:56 Patient Tobacco Use Status Current everyday Tobacco 08/30/24 11:56 Tobacco use type Cigarette 08/30/24 11:56 e-Cigarette/Vaping Use Former Use 08/30/24 11:56 Depression Screening Interpretation: Negative Thrive Assessment: Date of Thrive Assessment Date Thrive assessed 03/18/24 08/30/24 11:56 Currently or been in a relationship where the following occur: I choose not to answer Const General: comfortable and no acute distress Nutritional Appearance: obese morbidly obese Orientation/consciousness: patient oriented x3 HENMT Head: Yes normocephalic General nose exam: Normal external nose present Face and sinus: Yes face symmetric Mouth: moist mucous membranes Eyes General: appearance normal, both eyes and all related structures Neck Neck: Yes full ROM, Yes no lymphadenopathy and Yes supple Thyroid: Thyroid normal Chest Breast/axilla palpation: normal palpation of the breasts Resp Effort & Inspection: normal respiratory effort and able to speak in complete sentences Auscultation: clear to auscultation bilaterally Cardio Rate: regular rate Rhythm: regular rhythm Heart sounds: S1 normal heart sound present and S2 normal heart sound present GI Inspection: Yes obesity Palpation (GI): Soft to palpation, nontender, no guarding and no masses General: Yes no CVA tenderness Back/Spine/Pelvis Back: no CVA tenderness and No back tenderness Skin Other: Tender nodular mass on right lower abdomen, no active drainage Neuro General: patient oriented x3, gait normal, tone normal, moves all extremities, Normal light touch and pain sensation, no focal motor deficits and CN's II-XI intact bilaterally Extrem General: Yes full ROM, Yes no joint enlargement, Yes no clubbing, cyanosis or edema, Yes no pedal edema, Yes no calf tenderness and Yes normal gait Psych Appearance: grossly normal and well kempt Mental Status: mental status grossly normal Speech and movement: Normal speech and movement present Affect: normal affect Coding Level of Care Code Est Pt Prev Care 40-64y(74006) Diagnoses Annual visit for general adult medical examination with abnormal findings Z00.01 Right lower quadrant abdominal abscess K65.1 Screening for malignant neoplasm of cervix Z12.4 Essential hypertension I10 Hyperlipidemia, unspecified hyperlipidemia type E78.5 Hyperlipidemia type: unspecified Impaired fasting glucose R73.01 Morbid obesity E66.01 GERD (gastroesophageal reflux disease) K21.9 History of adenomatous polyp of colon Z86.010 Smoker unmotivated to quit F17.200 Advanced directives, counseling/discussion Z71.89 Assessment & Plan Assessment & Plan (1) Annual visit for general adult medical examination with abnormal findings: Code(s): Z00.01 - Encounter for general adult medical examination with abnormal findings Plan: Reminded to get fasting labs which have been already. Recommended dental visit every 6 months and regular eye exams, at least every 2 years. Take adequate calcium in diet and vitamin-D 3 at 2000 IU per cap once a day, in addition to weight-bearing exercises to help maintain good muscle tone and weight control. Instructed to do self-breast exam, and continue to get yearly mammogram, referred to [facility] [place] for her routine Pap and pelvic exam. Patient again reminded she is overdue for her screening colonoscopy has an appointment with GI clinic next month (2) Right lower quadrant abdominal abscess: Code(s): K65.1 - Peritoneal abscess Plan: Referred to general surgery for incision and drainage (3) Screening for malignant neoplasm of cervix: Code(s): Z12.4 - Encounter for screening for malignant neoplasm of cervix Plan: Referred to [facility] [place] [facility] for her routine Pap and pelvic exam. (4) Essential hypertension: Code(s): I10 - Essential (primary) hypertension Category: Medical Plan: Blood pressure at goal of less than 130/80. Continue with current medication. Reinforced importance of following a low sodium diet, getting regular exercise, and lowering stress levels. (5) Hyperlipidemia: Code(s): E78.5 - Hyperlipidemia, unspecified Category: Medical Qualifiers: Hyperlipidemia type: unspecified Qualified Code(s): E78.5 - Hyperlipidemia, unspecified Plan: Reminded patient to get her fasting labs done. Reinforced importance of following a low-cholesterol diet and getting at least 30 minutes of moderate intensity exercise. (6) Impaired fasting glucose: Code(s): R73.01 - Impaired fasting glucose Category: Medical Plan: Your previous fasting blood sugars were elevated above 100 mg/dL. Impaired glucose metabolism increases the risk for developing diabetes mellitus type 2, as well as heart attack and stroke later on. Lifestyle changes that promotes weight loss, healthy eating habits, and regular exercise are important, and can prevent the progression to diabetes (7) Morbid obesity: Code(s): E66.01 - Morbid (severe) obesity due to excess calories Category: Medical Plan: Y Discussed need to increase activity and weight reduction. Recommended focusing on improving health instead of dieting. Mediterranean diet is a healthy diet that helps, limit food high in fat, sugar, and calories. Eat slowly, pay attention to portion sizes, plan your meals ahead of time, start regular physical activity, at least 150 minutes of moderate intensity exercise, will try on GLP 1 agonist, advised to contact her insurance and find out what weight loss medication is covered under her plan. (8) GERD (gastroesophageal reflux disease): Comment: Well-controlled GERD. Code(s): K21.9 - Gastro-esophageal reflux disease without esophagitis Category: Medical Plan: Currently on omeprazole 40 mg daily followed by GI clinic (9) History of adenomatous polyp of colon: Comment: Removed by Dr. Barber in 2016 Code(s): Z86.010 - Personal history of colon polyps Category: Medical Plan: Patient states that she has an appointment with GI clinic already scheduled on 10/15/2024 (10) Smoker unmotivated to quit: Code(s): F17.200 - Nicotine dependence, unspecified, uncomplicated Category: Social Hx Plan: Patient strongly advised to stop smoking, as smoking damages blood vessels, degenerative of joints and spine, damage to lungs and heart., predisposes to developing certain cancers like lung, breast, bladder, colon. Recommended to try decreasing cigarette use by 1-2 cigarettes a day. Advised to monitor what triggers are for smoking so that this can be discussed on the next office visit. We can discuss different options to quit smoking when ready. (11) Advanced directives, counseling/discussion: Code(s): Z71.89 - Other specified counseling Plan: Initiated the conversation about Advanced Directives. Advanced Directives help patients prepare for current and future decisions about their medical treatment and place of care. Discussed with patient that it is a process where a patients current condition and prognosis are reviewed, their wishes for information regarding their illness are elicited, and likely medical dilemmas are presented and options discussed. Healthcare proxy form completed today. The form can be amended as needed, reviewed yearly and make changes as needed Orders: Referrals [employer] Referral Z12.4 - Encounter for screening for malignant neoplasm of cervix General Surgery Referral K65.1 - Peritoneal abscess
== END 2024-08-30 12:37 | disposition home or self-care (01) ==
LOC: HO.HMCC 10:43
PROVIDERS: PCP Internal Medicine; Visit Provider Internal Medicine
DX: Z00.01 Encounter for general adult medical examination with abnormal findings (principal); K65.1 Peritoneal abscess; E66.01 Morbid (severe) obesity due to excess calories; Z68.42 Body mass index [BMI] 45.0-49.9, adult; I10 Essential (primary) hypertension; E78.5 Hyperlipidemia, unspecified; R73.01 Impaired fasting glucose; K21.9 Gastro-esophageal reflux disease without esophagitis; Z86.0100 Personal history of colon polyps, unspecified; F17.200 Nicotine dependence, unspecified, uncomplicated; Z71.89 Other specified counseling

== ENCOUNTER 2024-09-09 14:08 | Outpatient (AMB) | payer OTHER, SELFPAY ==
--- NOTE | 2024-09-09 14:13 | A.OFFVIS_ITS ---
Vital Signs 3 09/09/24 14:23 Height 5 ft 8 in Weight 314 lb BMI 47.7 BP 183/86 H Blood Pressure Location Lt brachial Position Sitting Pulse 70 Intake Visit Reasons: Peritoneal abscess Intake Note: Patient is seen in office for evaluation of a peritoneal abscess. Pt c/o: has a boil in the right groin, was draining about couple days ago, currently is not painful, does feel a lump in the area Soil Conservation Aide Required: No Administrative Medical Director: Administrative Medical Director Present Accompanied by: Self / Same As Patient Allergies No Known Allergies (No Known Allergies*) Allergy (Verified 09/09/24 14:22) Medication List - Last Reconciled 09/09/24 by Se Dominguez MD amlodipine 5 mg PO QPM cetirizine 10 mg PO DAILY PRN clobetasol 0.05% topical PRN diclofenac sodium 1% 4 grams topical QID PRN docusate sodium 100 mg PO BID doxycycline hyclate 100 mg PO BID dupilumab mg subcut Q2W losartan-hydrochlorothiazide 100-12.5 mg 1 tab PO DAILY metoprolol succinate ER 25 mg PO DAILY omeprazole 40 mg PO DAILY HPI Comments Details: 64-year-old female patient presenting for evaluation of a right lower quadrant abdominal abscess. She denies any previous surgery, injection or trauma in this location. There was no previous cyst that was palpable prior to the onset of this infection. She reports a large painful lump developing over the weekend and was evaluated by her PCP on Friday. By Friday she reports the cyst broke open and produced a large amount of purulence discharge. She now feels the lump has decreased in size in his no longer causing any pain. She still feels a hard lump however she is not painful. She denies any fever, chills, nausea or vomiting. [facility] Medical History Nocturnal muscle cramps Impaired fasting glucose Eczema Arthritis of both knees Vitamin D deficiency Hyperlipidemia Annual visit for general adult medical examination with abnormal findings Maxillary sinusitis, acute Disturbance, sleep Excessive daytime sleepiness Smoker unmotivated to quit Arthralgia of knee, left Dermatitis Morbid obesity Essential hypertension Surgical History History of surgery on wrist History of colonoscopy Family History Father History of heart attack Mother Hx gestational diabetes Hx of heat stroke History of heart attack Hypertension Sister Cancer Social History Household Members: Family Housing: Apartment Alcohol intake: current Alcohol intake frequency: holidays/special occasions only Patient Tobacco Use Status: Current everyday Tobacco user Tobacco use type: Cigarette Cigarettes Per Day: 10 e-Cigarette/Vaping Use: Former Use service: No Current occupational status: employed Cognitive needs: No Hearing needs: No Vision needs: Yes Review of Systems Const All systems reviewed & are unremarkable except as noted in HPI and below Physical Exam Const General: no acute distress Nutritional Appearance: overweight Orientation/consciousness: patient oriented x3 Limitations: no limitations Resp Effort & Inspection: normal respiratory effort, no audible wheezes, no cough and respiratory distress GI Other: Palpable area of phlegmon in the right lower quadrant measuring approximately 3 x 2 cm with a central punctum. There is slight erythema in the overlying skin but no fluctuance. No further discharge could be expressed through the central punctum. Inspection: Yes normal to inspection and Yes Abdominal panniculus present Palpation (GI): Soft to palpation, nontender and no guarding Abdomen image: 2 1. Site of abdominal wall abscess right lower quadrant Neuro General: patient oriented x3 Extrem General: No edema Assessment & Plan Assessment & Plan (1) Abscess of abdominal wall: Code(s): L02.211 - Cutaneous abscess of abdominal wall Category: Medical Plan 64-year-old female patient presenting with a new onset abscess in the right lower quadrant abdomen. The abscess spontaneously opened yesterday with production of a large purulence collection. There is currently no residual abscess to my examination therefore no incision and drainage is required at this time. She still has some residual erythema and underlying phlegmon therefore I will start her on oral antibiotics for the next 10 days. I have asked her to return approximately 2 weeks for follow-up examination. She is welcome to call for any new concerns. Medications: New 2 doxycycline hyclate 100 mg PO BID 20 tabs 0RF L02.211 - Cutaneous abscess of abdominal wall Coding Level of Care Code New Pt Level 4 (22429) Diagnoses Abscess of abdominal wall L02.211
[2024-09-09 14:23] VITALS: BP 183/86; PULSE 70; BMI 47.7
== END 2024-09-09 14:31 | disposition home or self-care (01) ==
LOC: HO.HGS 14:08
PROVIDERS: PCP Internal Medicine; Visit Provider Surgery
DX: L02.211 Cutaneous abscess of abdominal wall (principal)
CPT/HCPCS: 99204

== ENCOUNTER 2024-09-11 09:46 | Outpatient (REF) | payer OTHER, SELFPAY ==
[2024-09-11 10:20] LABS: Hemoglobin A1C 116.4120 umol/L; Total Hemoglobin (HGBA1C) 3260.4675 umol/L
[2024-09-11 10:46] LABS: Alanine Aminotransferase 13 U/L (0-31); Anion Gap 13 (12-20); Aspartate Amino Transferase 19 U/L (5-31); Blood Urea Nitrogen 21 mg/dL (9-16); Calcium 9.5 mg/dL (8.4-10.2); Carbon Dioxide 25 mmol/L (22-29); Chloride 106 mmol/L (96-108); Cholesterol 196 mg/dL (<200); Estimated Glomerular Filt Rate > 60; HDL Cholesterol 47 mg/dL (>40); Potassium 4.0 mmol/L (3.3-5.1); Sodium 140 mmol/L (135-145); Triglycerides 121 mg/dL (<150)
== END 2024-09-11 09:47 | disposition home or self-care (01) ==
LOC: HO.LAB 09:46
PROVIDERS: PCP Internal Medicine; Visit Provider Internal Medicine
DX: E55.9 Vitamin D deficiency, unspecified (principal); E66.01 Morbid (severe) obesity due to excess calories; I10 Essential (primary) hypertension
CPT/HCPCS: 36415; 80048; 80061; 82306; 83036; 84450; 84460

== ENCOUNTER 2024-12-09 11:15 | Outpatient (AMB) | payer OTHER, SELFPAY ==
--- NOTE | 2024-12-09 11:21 | A.OFFPC_ITS ---
Vital Signs 12/09/24 11:22 Height 5 ft 8 in Weight 297 lb BMI 45.2 BP 110/70 Blood Pressure Location Rt brachial Position Sitting Respiration 16 Pulse 58 Pulse Source Pulse Oximeter Temp 98.2 F Pulse Oximetry (%) 98 Oxygen Delivery Method Room Air Intake Visit Reasons: Zedpbound - weight loss Intake Note: Pt is here today for rx zepbound increased dose Allergies No Known Allergies (No Known Allergies*) Allergy (Verified 12/17/24 00:27) Medication List - Last Reconciled 12/17/24 by Aditi Schaffer MD amlodipine 5 mg PO QPM blood pressure test kit-large (Omron Blood Pressure Monitor-3 Series kit) As directed cetirizine 10 mg PO DAILY PRN clobetasol 0.05% topical PRN diclofenac sodium 1% 4 grams topical QID PRN docusate sodium 100 mg PO BID doxycycline hyclate 100 mg PO BID dupilumab mg subcut Q2W losartan-hydrochlorothiazide 100-12.5 mg 1 tab PO DAILY metoprolol succinate ER 25 mg PO DAILY omeprazole 40 mg PO DAILY Zepbound (tirzepatide (weight loss)) 5 mg (0.5 mL) subcut QWEEK 3 months NS Tobacco use date assessed: 08/30/24 Dental Screening Dental Screen Date: 08/30/24 HPI Zedpbound - weight loss HPI Details 64-year-old [facility] after starting Zepbound . She reports a weight loss of 17 pounds, and notes improved mobility, although knee pain persists. Denies any side effects from taking the medication The patient has been experiencing hyperglycemia, with previous blood sugar levels noted to be elevated. She anticipates improvement in these levels following recent lifestyle changes and medication adjustments. Hypercholesterolemia was previously identified, expects a reduction in cholesterol levels due to recent dietary modifications. She has been on the current medication regimen for eight weeks, which she started after a delay due to personal stressors, including job loss. The patient has a history of hypertension, currently controlled on present treatment. [facility] Medical History Nocturnal muscle cramps Impaired fasting glucose Eczema Arthritis of both knees Vitamin D deficiency Hyperlipidemia Annual visit for general adult medical examination with abnormal findings Maxillary sinusitis, acute Disturbance, sleep Excessive daytime sleepiness Smoker unmotivated to quit Arthralgia of knee, left Dermatitis Morbid obesity Essential hypertension Surgical History History of surgery on wrist History of colonoscopy Family History Father History of heart attack Mother Hx gestational diabetes Hx of heat stroke History of heart attack Hypertension Sister Cancer Social History Household Members: Family Housing: Apartment Alcohol intake: current Alcohol intake frequency: holidays/special occasions only Patient Tobacco Use Status: Current everyday Tobacco user Tobacco use type: Cigarette Cigarettes Per Day: 10 e-Cigarette/Vaping Use: Former Use service: No Current occupational status: employed Cognitive needs: No Hearing needs: No Vision needs: Yes Questionnaire Thrive Questionnaire Date Thrive assessed: 03/18/24 I am a: Patient What is your living situation today?: I have a steady place to live Within the past 12 months, did the food you bought not last and you didn't have the money to get more?: I choose not to answer this question Within the past 12 months, did you worry whether your food would run out before you got money to buy more?: I choose not to answer this question Do you have trouble paying for medicines?: No Do you have trouble getting transportation to medical appointments?: No Do you have trouble paying your heating and electricity bill?: I choose not to answer this question Do you have trouble taking care of your child, family member or friend?: No Do you have trouble with day-to-day activities such as bathing, preparing meals, shopping, managing finances, etc.?: I choose not to answer this question Are you currently unemployed and looking for a job?: I choose not to answer this question Are you interested in more education?: I choose not to answer this question Please select the resources that you would like help with: Transportation Currently or been in a relationship where the following occur: I choose not to answer THRIVE Score: 0 GIULIA-7 AMB Questionnaire GIULIA-7 Date GIULIA - 7 assessed: 03/18/24 Source: Developed by Drs. Piotr Shaw, Dionne B.W. Edmund Storm and colleagues, with an educational blu from [employer]. Review of Systems Const All systems reviewed & are unremarkable except as noted in HPI and below Physical exam (Primary Care) Vital Signs: Last Vital Signs Temp 98.2 F 12/09/24 11:22 Pulse 58 12/09/24 11:22 Resp 16 12/09/24 11:22 BP 110/70 12/09/24 11:22 Pulse Ox 98 12/09/24 11:22 Oxygen Delivery Method Room Air 12/09/24 11:22 BMI result Body Mass Index 45.2 Tobacco/Smoking Status: Tobacco use Status Tobacco use date assessed 08/30/24 12/09/24 11:22 Patient Tobacco Use Status Current everyday Tobacco 12/09/24 11:22 Tobacco use type Cigarette 12/09/24 11:22 e-Cigarette/Vaping Use Former Use 12/09/24 11:22 Thrive Assessment: Date of Thrive Assessment Date Thrive assessed 03/18/24 12/09/24 11:22 Currently or been in a relationship where the following occur: I choose not to answer Const General: no acute distress Nutritional Appearance: obese morbidly obese Orientation/consciousness: patient oriented x3 HENMT Head: Yes normocephalic General nose exam: Normal external nose present Face and sinus: Yes face symmetric Mouth: moist mucous membranes Neck Neck: Yes full ROM, Yes no lymphadenopathy and Yes supple Thyroid: Thyroid normal Resp Effort & Inspection: normal respiratory effort and able to speak in complete sentences Auscultation: clear to auscultation bilaterally Cardio Rate: regular rate Rhythm: regular rhythm Heart sounds: S1 normal heart sound present and S2 normal heart sound present GI Inspection: Yes obesity Palpation (GI): Soft to palpation, nontender, no guarding and no masses Back/Spine/Pelvis Back: No back tenderness Neuro General: patient oriented x3, gait normal, tone normal, moves all extremities, Normal light touch and pain sensation, no focal motor deficits and CN's II-XI intact bilaterally Extrem General: Yes full ROM, Yes no joint enlargement, Yes no clubbing, cyanosis or edema, Yes no pedal edema, Yes no calf tenderness and Yes normal gait Psych Appearance: grossly normal and well kempt Mental Status: mental status grossly normal Speech and movement: Normal speech and movement present Affect: normal affect Coding Level of Care Code Est Pt Level 4 (11534) Diagnoses Essential hypertension I10 Morbid obesity E66.01 Hyperlipidemia, unspecified hyperlipidemia type E78.5 Hyperlipidemia type: unspecified Impaired fasting glucose R73.01 Assessment & Plan Assessment & Plan (1) Essential hypertension: Code(s): I10 - Essential (primary) hypertension Category: Medical Plan: Continued on losartan HCTZ metoprolol succinate ER and amlodipine at same dose (2) Morbid obesity: Code(s): E66.01 - Morbid (severe) obesity due to excess calories Category: Medical Plan: Continued on Zepbound increase to 5 mg injected subcutaneously once a week, reinforced importance of adhering to a healthy diet and getting regular exercise. Fasting labs ordered today to check for liver enzymes, A1c, vitamin- D, lipid panel basic metabolic panel and thyroid stimulating hormone level (3) Hyperlipidemia: Code(s): E78.5 - Hyperlipidemia, unspecified Category: Medical Qualifiers: Hyperlipidemia type: unspecified Qualified Code(s): E78.5 - Hyperlipidemia, unspecified Plan: Fasting lipids ordered today (4) Impaired fasting glucose: Code(s): R73.01 - Impaired fasting glucose Category: Medical Plan: Hemoglobin A1c ordered today, continue Zepbound now dose increased to 5 mg once a week Orders: Orders Alanine Aminotransferase 12/11/24 I10 - Essential (primary) hypertension, E78.5 - Hyperlipidemia, unspecified, R73.01 - Impaired fasting glucose, E66.01 - Morbid (severe) obesity due to excess calories, M17.0 - Bilateral primary osteoarthritis of knee Aspartate Amino Transferase 12/11/24 I10 - Essential (primary) hypertension, E78.5 - Hyperlipidemia, unspecified, R73.01 - Impaired fasting glucose, E66.01 - Morbid (severe) obesity due to excess calories, M17.0 - Bilateral primary oste oarthritis of knee Hemoglobin A1c 12/11/24 I10 - Essential (primary) hypertension, E78.5 - Hyperlipidemia, unspecified, R73.01 - Impaired fasting glucose, E66.01 - Morbid (severe) obesity due to excess calories, M17.0 - Bilateral primary osteoarthritis of knee Vitamin D 25-OH Total 12/11/24 I10 - Essential (primary) hypertension, E78.5 - Hyperlipidemia, unspecified, R73.01 - Impaired fasting glucose, E66.01 - Morbid (severe) obesity due to excess calories, M17.0 - Bilateral primary osteoarthritis of knee Lipid Panel 12/11/24 I10 - Essential (primary) hypertension, E78.5 - Hyperlipidemia, unspecified, R73.01 - Impaired fasting glucose, E66.01 - Morbid (severe) obesity due to excess calories, M17.0 - Bilateral primary osteoarthritis of knee Basic Metabolic Panel Fasting 12/11/24 I10 - Essential (primary) hypertension, E78.5 - Hyperlipidemia, unspecified, R73.01 - Impaired fasting glucose, E66.01 - Morbid (severe) obesity due to excess calories, M17.0 - Bilateral primary osteoarthritis of knee TSH reflex Free T4 12/11/24 I10 - Essential (primary) hypertension, E78.5 - Hyperlipidemia, unspecified, R73.01 - Impaired fasting glucose, E66.01 - Morbid (severe) obesity due to excess calories, M17.0 - Bilateral primary osteoarthritis of knee Medications: New Zepbound (tirzepatide (weight loss)) 5 mg (0.5 mL) subcut QWEEK 6 mL 1RF 3 months NS E78.5 - Hyperlipidemia, unspecified, I10 - Essential (primary) hypertension, R73.01 - Impaired fasting glucose, E66.01 - Morbid (severe) obesity due to excess calories, M17.0 - Bilateral primary osteoarthritis of knee Discontinued Zepbound for 4 weeks Discontinued Reason: Doctor's Order 2.5 mg (0.5 mL) subcut QWEEK 1 month 2 mL 1RF NS E66.01 - Morbid (severe) obesity due to excess calories, E78.5 - Hyperlipidemia, unspecified, I10 - Essential (primary) hypertension, R73.01 - Impaired fasting glucose
[2024-12-09 11:22] VITALS: BP 110/70; PULSE 58; RESP 16; TEMP 36.8; O2SAT 98; BMI 45.2
== END 2024-12-09 12:15 | disposition home or self-care (01) ==
LOC: HO.HMCC 11:16
PROVIDERS: PCP Internal Medicine; Visit Provider Internal Medicine
DX: I10 Essential (primary) hypertension (principal); E66.01 Morbid (severe) obesity due to excess calories; Z68.42 Body mass index [BMI] 45.0-49.9, adult; E78.5 Hyperlipidemia, unspecified; R73.01 Impaired fasting glucose

== ENCOUNTER 2024-12-11 08:06 | Outpatient (REF) | payer OTHER, SELFPAY ==
[2024-12-11 11:02] LABS: Alanine Aminotransferase 18 U/L (0-31); Anion Gap 16 (12-20); Aspartate Amino Transferase 21 U/L (5-31); Blood Urea Nitrogen 20 mg/dL (9-16); Calcium 9.6 mg/dL (8.4-10.2); Carbon Dioxide 26 mmol/L (22-29); Chloride 104 mmol/L (96-108); Cholesterol 202 mg/dL (<200); Estimated Glomerular Filt Rate 49; HDL Cholesterol 47 mg/dL (>40); Potassium 4.0 mmol/L (3.3-5.1); Sodium 142 mmol/L (135-145); Triglycerides 116 mg/dL (<150)
== END 2024-12-11 08:07 | disposition home or self-care (01) ==
LOC: HO.LAB 08:06
PROVIDERS: PCP Internal Medicine; Visit Provider Internal Medicine
DX: I10 Essential (primary) hypertension (principal); M17.0 Bilateral primary osteoarthritis of knee; E66.01 Morbid (severe) obesity due to excess calories; R73.01 Impaired fasting glucose; E78.5 Hyperlipidemia, unspecified
CPT/HCPCS: 36415; 80048; 80061; 82306; 83036; 84443; 84450; 84460

== ENCOUNTER 2024-12-14 14:00 | Outpatient (REF) | payer OTHER, SELFPAY ==
--- NOTE | ~2024-12-14 | MM_ITS ---
EXAMINATION: DXA BONE DENSITY AXIAL HISTORY: E55.9 - Vitamin D deficiency, unspecified TECHNIQUE: The [employer] Dual energy absorptiometry (DEXA) of the lumbar spine, total left hip, and femoral neck was performed. COMPARISON: FINDINGS: The bone mineral density of the lumbar spine is 1.347 g/cm2, corresponding to a T-score of 1.5, and a Z-score of 1.8. This is indicative of normal bone mineral density. The bone mineral density of the left total hip is 0.943 g/cm2, corresponding to a T-score of -0.5, and a Z-score of -0.3. This is indicative of normal bone mineral density. The bone mineral density of the left femoral neck is 1.045 g/cm2, corresponding to a T-score of 0, and a Z-score of 0.6. This is indicative of normal bone mineral density. FRACTURE RISK: The FRAX index suggests a ten year probability of major osteoporotic fracture of 5.3%, and of hip fracture 0.2%. MM/XR DEXA axial skeleton IMPRESSION: Based on bone mineral density, and according to World Health Organization (WHO) criteria, the diagnosis is consistent with normal bone mineral density based on lowest T score of -0.5 in the total femur. Statistically, 68% of repeat scans fall within 1 SD (+/- 0.010 g/cm2 for AP spine L1-L4) and 1 SD (+/- 0.012 g/cm2 for femur total) FRAX is a trademark of the [employer] [place] for Metabolic Bone Disease, a World Health Organization (WHO) Collaborating Center. Electronically signed by: Loretta Cortez MD 12/14/2024 02:41 PM EDT
--- NOTE | ~2024-12-14 | MM_ITS ---
EXAMINATION: MM SCREENING DIGITAL BREAST TOMOSYNTHESIS, BILATERAL CLINICAL INFORMATION: Screening. Asymptomatic. COMPARISON: Mammography: Comparison is made with available priors TECHNIQUE: Digital breast mammography with tomosynthesis is performed in both the craniocaudal and mediolateral oblique views along with computer-aided detection (CAD). FINDINGS: The breasts are almost entirely fatty. There are no significant masses, abnormal calcifications, or other abnormalities. MM/MM tomosynthesis screening BI IMPRESSION: No mammographic evidence of malignancy. ASSESSMENT: BI-RADS Category 1: Negative RECOMMENDATION: Routine annual mammography screening. 1 year F/U This examination should not preclude the clinical evaluation of a suspicious palpable abnormality. This patient's information was entered into a reminder system with a target due date for their next mammogram. Electronically signed by: Maye Corrales DO 12/20/2024 09:25 AM BALWINDER
== END 2024-12-14 14:01 | disposition home or self-care (01) ==
LOC: HO.MAMMO 14:00
PROVIDERS: PCP Internal Medicine; Visit Provider Internal Medicine
DX: Z12.31 Encounter for screening mammogram for malignant neoplasm of breast (principal); Z13.820 Encounter for screening for osteoporosis; Z78.0 Asymptomatic menopausal state; E55.9 Vitamin D deficiency, unspecified
CPT/HCPCS: 77063; 77067; 77080

== ENCOUNTER → 2024-12-14 14:30 | Outpatient (BNV) | payer OTHER, SELFPAY | PROVIDERS: PCP Internal Medicine; Visit Provider Radiology Diagnostic Radiology | DX: E28.39 Other primary ovarian failure (principal) | CPT/HCPCS: 77080 ==

== ENCOUNTER 2025-01-10 10:57 | Outpatient (AMB) | payer OTHER, SELFPAY ==
--- NOTE | 2025-01-10 11:25 | A.OFFPC_ITS ---
Vital Signs 01/10/25 11:26 Height 5 ft 8 in Weight 293 lb BMI 44.5 BP 100/70 Blood Pressure Location Lt brachial Position Sitting Respiration 16 Pulse 58 Pulse Source Pulse Oximeter Temp 98.3 F Temp Source Oral Pulse Oximetry (%) 98 Oxygen Delivery Method Room Air Intake Visit Reasons: 1 mo follow up Intake Note: Pt is here today for her 1mo. f/u Rice Drier Required: No Allergies No Known Allergies (No Known Allergies*) Allergy (Verified 01/10/25 11:48) Medication List - Last Reconciled 01/10/25 by Aditi Schaffer MD amlodipine 5 mg PO QPM blood pressure test kit-large (Omron Blood Pressure Monitor-3 Series kit) As directed cetirizine 10 mg PO DAILY PRN clobetasol 0.05% topical PRN diclofenac sodium 1% 4 grams topical QID PRN docusate sodium 100 mg PO BID dupilumab mg subcut Q2W losartan-hydrochlorothiazide 100-12.5 mg 1 tab PO DAILY metoprolol succinate ER 25 mg PO DAILY omeprazole 40 mg PO DAILY Zepbound (tirzepatide (weight loss)) 5 mg (0.5 mL) subcut QWEEK 3 months NS Tobacco use date assessed: 01/10/25 Dental Screening Dental Screen Date: 01/10/25 Did you have a dental visit in the last 12 months?: Yes Did you have a dental problem in the last 6 months where you did not have access to dental care?: No Was dental information given to patient?: Patient has dentist HPI 1 mo follow up HPI Details 64-year-old lady here today for follow-u p on her weight. She was started on Zepbound a month ago, at 5 mg injected once a week. Has been tolerating medication well, with no side effects reported. Has been noticing a decrease in her appetite, but admits to not getting any regular exercise. Has lost approximately 6 lb since starting the medication a month ago. Would like to continue. [facility] Medical History Nocturnal muscle cramps Impaired fasting glucose Eczema Arthritis of both knees Vitamin D deficiency Hyperlipidemia Annual visit for general adult medical examination with abnormal findings Maxillary sinusitis, acute Disturbance, sleep Excessive daytime sleepiness Smoker unmotivated to quit Arthralgia of knee, left Dermatitis Morbid obesity Essential hypertension Surgical History History of surgery on wrist History of colonoscopy Family History Father History of heart attack Mother Hx gestational diabetes Hx of heat stroke History of heart attack Hypertension Sister Cancer Social History Household Members: Family Housing: Apartment Alcohol intake: current Alcohol intake frequency: holidays/special occasions only Patient Tobacco Use Status: Current everyday Tobacco user Tobacco use type: Cigarette Cigarettes Per Day: 10 e-Cigarette/Vaping Use: Former Use service: No Current occupational status: employed Cognitive needs: No Hearing needs: No Vision needs: Yes Questionnaire PHQ-9 Over the last 2 weeks, how often have you been bothered by any of the following problems? 1. Little interest or pleasure in doing things: not at all 2. Feeling down, depressed, or hopeless: not at all 3. Trouble falling or staying asleep, or sleeping too much: not at all 4. Feeling tired or having little energy: not at all 5. Poor appetite or overeating: not at all 6. Feeling bad about yourself - or that you are a failure or have let yourself or your family down: not at all 7. Trouble concentrating on things, such as reading the newspaper or watching television: not at all 8. Moving or speaking so slowly that other people could have noticed. Or the opposite - being so fidgety or restless that you have been moving around a lot more than usual: not at all 9. Thoughts that you would be better off or of hurting yourself in some way: not at all Total score: 0 Source: Developed by Drs. Piotr Shaw, Dionne Storm, Edmund Hickey and colleagues, with an educational blu from [employer]. Thrive Questionnaire Date Thrive assessed: 03/18/24 I am a: Patient What is your living situation today?: I have a steady place to live Within the past 12 months, did the food you bought not last and you didn't have the money to get more?: I choose not to answer this question Within the past 12 months, did you worry whether your food would run out before you got money to buy more?: I choose not to answer this question Do you have trouble paying for medicines?: No Do you have trouble getting transportation to medical appointments?: No Do you have trouble paying your heating and electricity bill?: I choose not to answer this question Do you have trouble taking care of your child, family member or friend?: No Do you have trouble with day-to-day activities such as bathing, preparing meals, shopping, managing finances, etc.?: I choose not to answer this question Are you currently unemployed and looking for a job?: I choose not to answer this question Are you interested in more education?: I choose not to answer this question Please select the resources that you would like help with: Transportation Currently or been in a relationship where the following occur: I choose not to answer THRIVE Score: 0 AUDIT C Alcohol Use Questionnaire (AUDIT-C) 1. How often do you have a drink containing alcohol?: Monthly or less 2. How many drinks containing alcohol do you have on a typical day when you are drinking?: 1 or 2 3. How often do you have six or more drinks on one occasion?: Never Total Score: 1 GIULIA-7 AMB Questionnaire GIULIA-7 Date GIULIA - 7 assessed: 03/18/24 Feeling nervous, anxious, or on edge: 0 = Not at all Not being able to stop or control worryin = Not at all Worrying too much about different things: 0 = Not at all Trouble relaxin = Not at all Being so restless that it is hard to sit still: 0 = Not at all Becoming easily annoyed or irritable: 0 = Not at all Feeling afraid as if something awful might happen: 0 = Not at all Total GIULIA-7 score (0-4 normal; 5-9 mild; 10-14 moderate; 15-21 severe): 0 Source: Developed by Drs. Piotr Shaw, Dionne Storm, Edmund Hickey and colleagues, with an educational blu from [employer]. Review of Systems Const All systems reviewed & are unremarkable except as noted in HPI and below Physical exam (Primary Care) Vital Signs: Last Vital Signs Temp 98.3 F 01/10/25 11:26 Pulse 58 11/17/25 11:26 Resp 16 01/10/25 11:26 BP 100/70 01/10/25 11:26 Pulse Ox 98 01/10/25 11:26 Oxygen Delivery Method Room Air 01/10/25 11:26 BMI result Body Mass Index 44.5 Tobacco/Smoking Status: Tobacco use Status Tobacco use date assessed 01/10/25 01/10/25 11:32 Patient Tobacco Use Status Current everyday Tobacco 01/10/25 11:26 Tobacco use type Cigarette 01/10/25 11:26 e-Cigarette/Vaping Use Former Use 01/10/25 11:26 PHQ-9: PHQ-9 Score PHQ-9: Total score 0 01/16/25 22:03 Thrive Assessment: Date of Thrive Assessment Date Thrive assessed 03/18/24 01/10/25 11:26 Currently or been in a relationship where the following occur: I choose not to answer Const General: no acute distress Nutritional Appearance: obese morbidly obese Orientation/consciousness: patient oriented x3 HENMT Face and sinus: Yes face symmetric Mouth: moist mucous membranes Neck Neck: Yes full ROM, Yes no lymphadenopathy and Yes supple Thyroid: Thyroid normal Resp Effort & Inspection: normal respiratory effort and able to speak in complete sentences Auscultation: clear to auscultation bilaterally Cardio Rate: regular rate Rhythm: regular rhythm Heart sounds: S1 normal heart sound present and S2 normal heart sound present GI Inspection: Yes obesity Palpation (GI): Soft to palpation, nontender, no guarding and no masses Neuro General: patient oriented x3, gait normal, tone normal, moves all extremities, Normal light touch and pain sensation, no focal motor deficits and CN's II-XI intact bilaterally Psych Appearance: grossly normal and well kempt Mental Status: mental status grossly normal Speech and movement: Normal speech and movement present Affect: normal affect Coding Level of Care Code Est Pt Level 3 (74143) Diagnoses Morbid obesity E66.01 Assessment & Plan Assessment & Plan (1) Morbid obesity: Code(s): E66.01 - Morbid (severe) obesity due to excess calories Category: Medical Plan: Has lost approximately 6 lb since starting Zepbound, will increase dose to 7.5 mg injected subcutaneously once a week. Advised to adhere to a healthy diet, and start doing at least 15 minutes of moderate intensity exercise daily with weight loss. Medications: Changed From Zepbound 5 mg (0.5 mL) subcut QWEEK 3 months 6 mL 1RF NS E66.01 - Morbid (severe) obesity due to excess calories, E78.5 - Hyperlipidemia, unspecified, I10 - Essential (primary) hypertension, M17.0 - Bilateral primary osteoarthritis of knee, R73.01 - Impaired fasting glucose To tirzepatide (weight loss) 7.5 mg (0.5 mL) subcut QWEEK 2 mL 1RF 30 days E66.01 - Morbid (severe) obesity due to excess calories, E78.5 - Hyperlipidemia, unspecified, I10 - Essential (primary) hypertension, M17.0 - Bilateral primary osteoarthritis of knee, R73.01 - Impaired fasting glucose Refilled omeprazole 40 mg PO DAILY 90 caps 0RF
[2025-01-10 11:26] VITALS: BP 100/70; PULSE 58; RESP 16; TEMP 36.8; O2SAT 98; BMI 44.5
== END 2025-01-10 12:03 | disposition home or self-care (01) ==
LOC: HO.HMCC 10:57
PROVIDERS: PCP Internal Medicine; Visit Provider Internal Medicine
DX: E66.01 Morbid (severe) obesity due to excess calories (principal); Z68.44 Body mass index [BMI] 60.0-69.9, adult

== ENCOUNTER 2025-02-15 10:54 | Outpatient (AMB) | payer OTHER, SELFPAY ==
[2025-02-15 11:04] VITALS: BP 122/70; PULSE 64; RESP 16; TEMP 36.6; O2SAT 98; BMI 44.4
--- NOTE | 2025-02-15 11:04 | MHC.PC.OV ---
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 Required: No Allergies No Known Allergies (No Known Allergies*) Allergy (Verified 02/15/25 11:11) Medication List - Last Reconciled 02/15/25 by Aditi Schaffer MD amlodipine 5 mg PO QPM blood pressure test kit-large (Omron Blood Pressure Monitor-3 Series kit) As directed cetirizine 10 mg PO DAILY PRN clobetasol 0.05% topical PRN diclofenac sodium 1% 4 grams topical QID PRN docusate sodium 100 mg PO BID dupilumab mg subcut Q2W losartan-hydrochlorothiazide 100-12.5 mg 1 tab PO DAILY metoprolol succinate ER 25 mg PO DAILY omeprazole 40 mg PO DAILY tirzepatide (weight loss) 7.5 mg (0.5 mL) subcut QWEEK 30 days Tobacco use date assessed: 02/15/25 Dental Screening Dental Screen Date: 02/15/25 Did you have a dental visit in the last 12 months?: Yes Did you have a dental problem in the last 6 months where you did not have access to dental care?: No Was dental information given to patient?: Patient has dentist HPI 1 mo follow up HPI Details The patient is a 65 year old female presenting for a follow-up visit for weight loss management. She started Zepbound (tirzepatide) last month and has lost approximately 20 pounds since then, going from 314 pounds. She states that appetite is suppressed, denies any adverse effects such as abdominal cramping, bloating or alteration in bowel habits with the medication. With this weight loss, the patient notes that her blood pressure has improved. Recent lab work showed her blood sugar has normalized, though her cholesterol remains slightly elevated. Her thyroid and vitamin D levels are normal. [facility] Medical History Nocturnal muscle cramps Impaired fasting glucose Eczema Arthritis of both knees Vitamin D deficiency Hyperlipidemia Annual visit for general adult medical examination with abnormal findings Maxillary sinusitis, acute Disturbance, sleep Excessive daytime sleepiness Smoker unmotivated to quit Arthralgia of knee, left Dermatitis Morbid obesity Essential hypertension Surgical History History of surgery on wrist History of colonoscopy Family History Father History of heart attack Mother Hx gestational diabetes Hx of heat stroke History of heart attack Hypertension Sister Cancer Social History Household Members: Family Housing: Apartment Alcohol intake: current Alcohol intake frequency: holidays/special occasions only Patient Tobacco Use Status: Current everyday Tobacco user Tobacco use type: Cigarette Cigarettes Per Day: 10 e-Cigarette/Vaping Use: Former Use service: No Current occupational status: employed Cognitive needs: No Hearing needs: No Vision needs: Yes Questionnaire Thrive Questionnaire Date Thrive assessed: 03/18/24 I am a: Patient What is your living situation today?: I have a steady place to live Within the past 12 months, did the food you bought not last and you didn't have the money to get more?: I choose not to answer this question Within the past 12 months, did you worry whether your food would run out before you got money to buy more?: I choose not to answer this question Do you have trouble paying for medicines?: No Do you have trouble getting transportation to medical appointments?: No Do you have trouble paying your heating and electricity bill?: I choose not to answer this question Do you have trouble taking care of your child, family member or friend?: No Do you have trouble with day-to-day activities such as bathing, preparing meals, shopping, managing finances, etc.?: I choose not to answer this question Are you currently unemployed and looking for a job?: I choose not to answer this question Are you interested in more education?: I choose not to answer this question Currently or been in a relationship where the following occur: I choose not to answer THRIVE Score: 0 GIULIA-7 AMB Questionnaire GIULIA-7 Date GIULIA - 7 assessed: 03/18/24 Source: Developed by Dionne Peace.W. Emeterio, Edmund Hickey and colleagues, with an educational blu from [employer]. Review of Systems Const Denies headache(s) and Denies weakness Eyes Details: Sees Dr. Messer, wears reading glasses Reports no additional complaints ENT Denies dysphagia and Denies headache(s) Card Denies chest pain, Denies irregular heart rhythm, Denies lightheadedness, Denies palpitations and Denies dyspnea Resp Denies cough, Denies dyspnea and Denies wheezing GI Denies abdominal pain, Denies melena, Denies dysphagia, Denies heartburn (Controlled on omeprazole) and Denies nausea Reports no additional complaints Musc Denies abnormal gait, Reports arthralgias and Denies muscle cramps Skin/Breast Denies lesions and Denies rash Neuro Denies abnormal gait, Denies headache(s), Denies focal weakness and Denies weakness Psych Reports no additional complaints Endo Denies cold intolerance, Denies polyphagia, Denies polydipsia, Denies polyuria and Denies palpitations Zac/Lymph Denies easy bleeding and Denies easy bruising Aller/Immun Denies seasonal rhinorrhea and Denies wheezing Physical exam (Primary Care) Vital Signs: Last Vital Signs Temp 97.8 F 02/15/25 11:04 Pulse 64 02/15/25 11:04 Resp 16 02/15/25 11:04 BP 122/70 02/15/25 11:04 Pulse Ox 98 02/15/25 11:04 Oxygen Delivery Method Room Air 02/15/25 11:04 BMI result Body Mass Index 44.4 Tobacco/Smoking Status: Tobacco use Status Tobacco use date assessed 02/15/25 02/15/25 11:08 Patient Tobacco Use Status Current everyday Tobacco 02/15/25 11:08 Tobacco use type Cigarette 02/15/25 11:08 e-Cigarette/Vaping Use Former Use 02/15/25 11:08 Thrive Assessment: Date of Thrive Assessment Date Thrive assessed 03/18/24 02/15/25 11:08 Currently or been in a relationship where the following occur: I choose not to answer Const General: no acute distress Nutritional Appearance: obese morbidly obese Orientation/consciousness: patient oriented x3 HENMT Face and sinus: Yes face symmetric Mouth: moist mucous membranes Neck Neck: Yes full ROM, Yes no lymphadenopathy and Yes supple Thyroid: Thyroid normal Resp Effort & Inspection: normal respiratory effort and able to speak in complete sentences Auscultation: clear to auscultation bilaterally Cardio Rate: regular rate Rhythm: regular rhythm Heart sounds: S1 normal heart sound present and S2 normal heart sound present GI Inspection: Yes obesity Palpation (GI): Soft to palpation, nontender, no guarding and no masses Neuro General: patient oriented x3, gait normal, tone normal, moves all extremities, Normal light touch and pain sensation, no focal motor deficits and CN's II-XI intact bilaterally Psych Appearance: grossly normal and well kempt Mental Status: mental status grossly normal Speech and movement: Normal speech and movement present Affect: normal affect Coding Level of Care Code Est Pt Level 4 (68813) Diagnoses Morbid obesity E66.01 Essential hypertension I10 Hyperlipidemia, unspecified hyperlipidemia type E78.5 Hyperlipidemia type: unspecified Assessment & Plan Assessment & Plan (1) Morbid obesity: Code(s): E66.01 - Morbid (severe) obesity due to excess calories Category: Medical Plan: The patient is responding well to Zepbound 7.5 mg with a significant weight loss of nearly 20 pounds. This has resulted in the normalization of her blood sugar and improvement in blood pressure. The plan is to continue with lifestyle modifications. A discussion was held regarding insurance coverage changes for weight loss medications next year. The patient was advised to [facility], to confirm coverage for Zepbound. To conserve her current 4-pen supply, it was suggested she could extend the dosing interval to every 10-14 days. She was counseled on the importance of maintaining a healthy diet, low in starches and carbs, more lean protein and incorporating at least 15 minutes of moderate intensity exercise. The importance of not skipping meals was also stressed to ensure sustainable habits. (2) Essential hypertension: Code(s): I10 - Essential (primary) hypertension Category: Medical Plan: Her blood pressure control has improved with weight loss . The plan is to continue with lifestyle modifications, including diet and exercise, which appear to be effectively managing her blood pressur (3) Hyperlipidemia: Code(s): E78.5 - Hyperlipidemia, unspecified Category: Medical Qualifiers: Hyperlipidemia type: unspecified Qualified Code(s): E78.5 - Hyperlipidemia, unspecified Plan: Her cholesterol remains slightly elevated. The plan is to continue monitoring, as it is expected to decrease with continued weight loss and dietary improvements. No changes to medication were made at this time Plan Patient was informed and verbally consented to the use of an ambient scribe for clinic note documentation during this visit
--- OUTSIDE RECORDS SUMMARY | 2025-02-15 12:16 | XMS_ITS | Clinical Summary ---
Author Organization [facility] Rig[facility] Address [address] [place], [place] [id number] Care Team Providers Care Community Health Nurse Name Role Phone Aditi Schaffer Primary Care Provider [phone] Allergies No known active allergies Medications losartan (COZAAR) 50 MG tablet Take 50 mg by mouth daily. Active docusate sodium (COLACE) 100 MG capsule Take 100 mg by mouth every morning & every evening. Active omeprazole (PriLOSEC) [address] Capsule Take 40 mg by mouth daily. Active clobetasol (TEMOVATE) 0.05 % external solutionIndicatio ns:Rash and other nonspecific skin eruption Apply topically every morning & every evening. Avoid face and eyes. May repeat after a one week break. 250 mL 2 9 Active fluocinonide (LIDEX) 0.05 % external solution Apply topically every morning & every evening. To scalp max 3 weeks per month 60 mL 1 9 Active betamethasone dipropionate (DIPROLENE) 0.05 % lotion Apply topically every morning & every evening. No more than 2 weeks per month 60 mL 6 9 Active triamcinolone (KENALOG) 0.1 % ointmentIndicatio ns:Rash and other nonspecific skin eruption Apply topically every morning & every evening. Apply to affected areas for 7 day on 7 days off. Avoid face genitals skin folds. 453.6 g 9 Active Social History Tobacco Use Types Packs/Day Years Used Date Smoking Tobacco: Never Assessed Comments Unknown Sex and Gender Information Value Date Recorded Sex Assigned at Not on file Legal Sex Female 11:34 AM EDT Gender Identity Not on file Sexual Orientation Not on file Plan of Treatment Not on file [place] [place] [id number] PLAN Care Teams Community Health Nurse Relationship Specialty Start Date End Date Aditi Schaffer [address] [place], [place] [id number] PCP - General 09/09/18
== END 2025-02-15 12:02 | disposition home or self-care (01) ==
LOC: HO.HMCC 10:55
PROVIDERS: PCP Internal Medicine; Visit Provider Internal Medicine
DX: E66.01 Morbid (severe) obesity due to excess calories (principal); I10 Essential (primary) hypertension; E78.5 Hyperlipidemia, unspecified